=== PATIENT | female | born 1930 | race Caucasian/White ===

== ENCOUNTER 2018-09-07 10:43 | Day surgery (SDC) | payer MEDICARE ==
[2018-09-06 13:51] VITALS: BMI 27.4
[2018-09-07] MEDS ORDERED: PROPOFOL 200 MG/20 ML VIAL ONE (11:42)
[2018-09-07 11:55] LABS: #Lymphocytes 0.9 thou/uL (1.20-3.40); #Monocytes 0.6 thou/uL (0.11-0.59); #Neutrophils 8.3 thou/uL (1.40-6.50); %Basophils 0.4 % (0.0-1.0); %Eosinophils 0.4 % (0.0-10.0); %Monocytes 6.5 % (0.0-10.0); %Neutrophils 83.7 % (42.0-75.0); Mean Corpuscular HGB CONC 32.1 g/dL (32.0-36.0); Mean Corpuscular Hemoglobin 29.7 pg (27.0-31.0); Mean Corpuscular Volume 92.6 fL (78.0-98.0); Mean Platelet Volume 7.7 fL (7.4-10.4); Platelet Count 266 thou/uL (130-400); RBC Distribution Width 13.2 % (11.5-14.5); Red Blood Cell (RBC) Count 3.69 mill/uL (4.20-5.40); White Blood Cell (WBC) Count 9.9 thou/uL (4.8-10.8)
[2018-09-07 11:58] LABS: INR-International Normal Ratio 1.8; PTT 33.8 SEC (22.9-36.1); Prothrombin Time 20.8 SEC (12.0-14.7)
[2018-09-07 12:10] LABS: Anion Gap 13 mmol/L (10-20); BUN (Urea Nitrogen) 29 mg/dL (9.8-20.1); Calc. Creatinine Clearance 41 mL/min (70-130); Calcium 8.8 mg/dL (7.8-10.44); Carbon Dioxide 21 mmol/L (23-31); Chloride 97 mmol/L (98-107); Estimated GFR-MDRD 45; Glucose 100 mg/dL (83-110); Potassium 4.3 mmol/L (3.5-5.1); Sodium 127 mmol/L (136-145)
[2018-09-07] MEDS ORDERED: PROPOFOL 20 ML ONE (12:14)
--- NOTE | 2018-09-07 12:28 | EKG ---
Test Reason : PREOP Blood Pressure : / mmHG Vent. Rate : 079 BPM Atrial Rate : 076 BPM P-R Int : 000 ms QRS Dur : 174 ms QT Int : 480 ms P-R-T Axes : 000 -59 105 degrees QTc Int : 550 ms Electronic ventricular pacemaker When compared with ECG of 23-JUL-2015 11:16, Electronic ventricular pacemaker has replaced Wide QRS rhythm Vent. rate has increased BY [address] Sulma SANTA ([id number]) on 09/07/2018 12:28:11 PM Referred By: [facility] Confirmed By:DR. Sulma SANTA
[2018-09-07] MEDS ORDERED: Ketamine 50 MG/ML (10ML VIAL) ONE (13:43)
[2018-09-07] MEDS ORDERED: Hydrocortisone 1% Cream 30 GM TUBE ONE (14:17)
[2018-09-07] MEDS ORDERED: Hydrocortisone 1% Cream 30 GM TUBE TOP PRN (14:23)
--- NOTE | 2018-09-07 14:38 | OP ---
DATE OF PROCEDURE: 09/07/2018 PROCEDURE PERFORMED: Cardioversion report. REASON FOR PROCEDURE: Ms. Manley is here with persistent atrial fibrillation. She is anticoagulated with reduced dose of Xarelto without fail. Cardioversion is planned. DESCRIPTION OF PROCEDURE: The patient received propofol by Anesthesia specialist as well as ketamine. The ICD was interrogated pre and post procedure. After adequate level of sedation achieved, a synchronized 35-joule shock was delivered to the device, but appeared to convert the patient back to sinus rhythm. Following that, a 300-joule external synchronized shock converted her back to sinus rhythm. CONCLUSIONS: Successful cardioversion. PLAN: Continue monitoring for recurrent arrhythmias. Consider antiarrhythmic agents if symptomatic difference is noted. Continue anticoagulation. Job ID: [id number]
== END 2018-09-07 15:42 | disposition home or self-care (01) ==
LOC: CCL 10:43
PROVIDERS: ATTEND Internal Medicine Cardiovascular Disease
PROC: 5A2204Z Restoration of Cardiac Rhythm, Single (ICD-10-PCS; principal; 2018-09-07)
DX: I48.1 Persistent atrial fibrillation (principal); I11.0 Hypertensive heart disease with heart failure; I50.22 Chronic systolic (congestive) heart failure; I25.10 Atherosclerotic heart disease of native coronary artery without angina pectoris; M06.9 Rheumatoid arthritis, unspecified; E03.9 Hypothyroidism, unspecified; Z95.810 Presence of automatic (implantable) cardiac defibrillator; Z88.0 Allergy status to penicillin; Z88.5 Allergy status to narcotic agent; Z88.2 Allergy status to sulfonamides; Z88.8 Allergy status to other drugs, medicaments and biological substances; Z88.1 Allergy status to other antibiotic agents; Z79.02 Long term (current) use of antithrombotics/antiplatelets; Z79.01 Long term (current) use of anticoagulants; Z79.82 Long term (current) use of aspirin; Z79.899 Other long term (current) drug therapy
CPT/HCPCS: 80048; 85025; 85610; 85730; 92960; 93005; 93010; J2704

== ENCOUNTER 2018-12-24 20:15 | Inpatient (IN) | payer MEDICARE ==
--- NOTE | 2018-12-24 21:04 | CT ---
CT Brain WO Con HISTORY: Altered mental status COMPARISON: None. FINDINGS: There is generalized ventricular and sulcal prominence. There is some decreased attenuation to the periventricular white matter consistent with chronic white matter change. There are no signs of intracerebral hemorrhage or extra-axial fluid collections the mastoid air cells and visualiz ed sinuses are clear. IMPRESSION: No acute intracranial abnormalities.
[2018-12-24] MEDS ORDERED: Sodium Chloride 0.9% 1,000 ML IV SCH (22:43)
[2018-12-24] MEDS ORDERED: Ondansetron PF 4 MG/2 ML Vial IVP PRN (22:43)
[2018-12-24] MEDS ORDERED: Ondansetron ODT 4 MG TAB PO PRN (22:43)
[2018-12-24] MEDS ORDERED: hydrALAZINE 20 MG/ML VIAL SLOW IVP PRN (22:43)
[2018-12-24 22:59] VITALS: BMI 26.4
[2018-12-25 00:11] LABS: Troponin I 0.058 ng/mL (< 0.028)
--- NOTE | 2018-12-25 00:48 | HP ---
PRIMARY CARE PROVIDER: Tracy Barroso MD CHIEF COMPLAINT: Visual hallucinations and weakness. HISTORY OF PRESENT ILLNESS: This is an 88-year-old female, who presents to [facility] Emergency Department in transfer from [facility], where the patient initially presented for changes to mental status and confusion with some visual hallucinations. The patient states she has noted some visual hallucinations seeing people not in the room over the last several days. The patient denied recent head trauma, fever, chills, exposure history, or change to her chronic medication regimen. The patient states she normally ambulates with a rolling walker, but denied recent fall or injury. The patient receives assistance with activities of daily living and meal preparation from her daughter whom she lives with. The patient denied any diarrhea, nausea, vomiting, or dysuria. The patient states she sleeps generally well at night, but has noted the visual hallucinations in the last several days. The patient denied taking any new medication as stated previously, or known exposure history. In the emergency room, the patient underwent general evaluation including CT imaging of the brain showing no acute process. Metabolic screening showed mild acute kidney injury in the context of chronic kidney disease as well as chronic normocytic anemia. PAST MEDICAL HISTORY: 1. Chronic atrial fibrillation with chronic anticoagulation with Xarelto. 2. Rheumatoid arthritis. 3. Hypothyroidism. 4. Hypertension. 5. Systolic congestive heart failure with ejection fraction in the 30% range. 6. Coronary artery disease. 7. Bioprosthetic aortic valve replacement. PAST SURGICAL HISTORY: 1. Status post bioprosthetic aortic valve replacement. 2. Status post ICD placement with lead revision, 08/2018. 3. Status post cardiac stent placement. 4. Status post bilateral tubal ligation. 5. Status post hysterectomy. 6. Status post bowel resection. CURRENT MEDICATIONS: 1. Coreg 3.125 mg p.o. b.i.d.. 2. Lasix 40 mg p.o. Wednesday and Wednesday only. 3. Potassium chloride 20 mEq p.o. daily. 4. Xarelto 15 mg p.o. daily. 5. Folic acid 0.8 mg p.o. daily. 6. Vitamin D3 5000 units p.o. on Wednesday and Wednesday. 7. Plavix 75 mg p.o. daily. 8. Levothyroxine 75 mcg p.o. daily. ALLERGIES: CODEINE SULFATE, METHOTREXATE, PENICILLIN, SULFA. FAMILY HISTORY: Positive for hypertension. SOCIAL HISTORY: The patient resides in [place], [place], living with her daughter. Ambulatory with a rolling walker. No recent falls. No alcohol, tobacco, or illicit drug use. REVIEW OF SYSTEMS: CONSTITUTIONAL: Negative for weight loss or gain, ability to conduct usual activities. SKIN: Negative for rash, itching. EYES: Negative for double vision, pain. ENT/MOUTH: Negative for nose bleeding, neck stiffness, pain, tenderness. CARDIOVASCULAR: Negative for palpitations, dyspnea on exertion, orthopnea. RESPIRATORY: Negative for shortness of breath, wheezing, cough, hemoptysis, fever or night sweats. GASTROINTESTINAL: Negative for poor appetite, abdominal pain, heartburn, nausea, vomiting, constipation, or diarrhea. GENITOURINARY: Negative for urgency, frequency, dysuria, nocturia. MUSCULOSKELETAL: Negative for pain, swelling. NEUROLOGIC/PSYCHIATRIC: Negative for anxiety, depression. ALLERGY/IMMUNOLOGIC: Negative for skin rash, bleeding tendency. Otherwise negative except as stated per HPI. PHYSICAL EXAMINATION: VITAL SIGNS: On admission, blood pressure 125/74, pulse 79, respiratory rate 16, temperature 97.6 degrees Fahrenheit, O2 saturation 97% on room air. GENERAL APPEARANCE: This is an 88-year-old female, alert and oriented x3, pleasant, responsive, in no acute distress. HEENT: Pupils are equal, round, reactive to light and accommodation. Extraocular muscles are intact. No scleral icterus. No conjunctival injection. Nares are patent. OP is clear. Teeth in good repair. NECK: Supple. No cervical adenopathy. No thyromegaly. No carotid bruits. No JVD appreciated. Cervical spine with full active and passive range of motion. No meningeal signs noted. CHEST: Lungs are clear to auscultation bilaterally. CARDIOVASCULAR: S1 and S2 with irregular rate and rhythm with a 2/6 systolic ejection murmur loudest in the right upper sternal border. Left upper chest wall with AICD device. ABDOMEN: Obese, soft, nontender, and nondistended. Bowel sounds are positive in all 4 quadrants. There is no hepatosplenomegaly. No abdominal bruits. No rebound or guarding appreciated. EXTREMITIES: Warm and dry with fair turgor. No clubbing, cyanosis, or asymmetric edema appreciated. Pulses palpable distally at the dorsalis pedis, posterior tibial, and popliteal arteries bilaterally. Capillary refill less than 2 seconds. Multiple deformities of the hands and toes consistent with rheumatoid arthritis. NEUROLOGIC: Cranial nerves 2 through 12 are grossly intact. No focal or lateralizing signs appreciated. PERTINENT LABORATORY DATA AND X-RAY FINDINGS: Sodium 137, potassium 4.0, chloride 102, CO2 of 22, BUN 29, creatinine 1.56, estimated GFR of 31, glucose 98, calcium 9.0, magnesium 1.6. LFTs within normal limits. Troponin I 0.047. BNP 526, previously noted 1750, 09/26/2018. TSH 1.41. CBC showed a white blood cell count of 6.2, hemoglobin 9.5, hematocrit 31, platelet count 323 with normal differential. Urinalysis showed trace leukocyte esterase with 7 to 10 squamous epithelial cells. EKG dated 12/24/2018 by my interpretation shows AV dual pacing with heart rates in the 70s. CT of the brain without contrast dated 12/24/2018 showed no acute intracranial process. Portable chest x-ray dated 12/24/2018 showed no acute cardiopulmonary process. ASSESSMENT AND PLAN: 1. Altered mental status/visual hallucinations. The patient will be observed on the telemetry unit. Exact etiology unclear currently. Questionable metabolic process. We will continue to observe on the telemetry unit and monitor for recurrence. 2. Acute kidney injury on chronic kidney disease, stage 3. Continue intravenous normal saline at 50 mL/h. Avoid nephrotoxic agents and limit contrast exposure. Repeat creatinine in the a.m. 3. Dehydration. Suspect secondary to increased Lasix dosing. Continue low volume IV fluids as outlined previously and monitor clinical response. 4. Normocytic anemia. Chronic when reviewing the electronic medical record. Check stool guaiac x1. Repeat CBC in the a.m. 5. Chronic atrial fibrillation. Current AV pacing on telemetry and EKG monitoring. Stable. 6. Chronic anticoagulation with Xarelto. Resume Xarelto 15 mg daily. 7. Prophylaxis. SCDs while in bed. Pepcid 20 mg p.o. b.i.d. CODE STATUS: Full. Surrogate medical decision maker is the patient's daughter. Job ID: [id number]
[2018-12-25] MEDS: Acetaminophen 500 MG TAB PO PRN (01:30)
[2018-12-25 05:59] LABS: Band 2 % (5-11); Eosinophils 7 % (0-10); Hemoglobin 9.4 g/dL (12.0-16.0); Hypochromia SLIGHT = 6-15 cells (100X) (0-5/hpf); Lymphocytes 18 % (21-51); MDiff Complete? YES; Mean Corpuscular HGB CONC 33.3 g/dL (32.0-36.0); Mean Corpuscular Hemoglobin 31.5 pg (27.0-31.0); Mean Corpuscular Volume 94.7 fL (78.0-98.0); Monocytes 3 % (0-10); Neutrophil 70 % (42-75); Platelet Count 359 thou/uL (130-400); Platelet Morphology Comment Appears Adequate; RBC Distribution Width 14.2 % (11.5-14.5); Red Blood Cell (RBC) Count 2.97 mill/uL (4.20-5.40); White Blood Cell (WBC) Count 4.7 thou/uL (4.8-10.8)
[2018-12-25 06:11] LABS: Anion Gap 14 mmol/L (10-20); BUN (Urea Nitrogen) 26 mg/dL (9.8-20.1); Calc. Creatinine Clearance 32 mL/min (70-130); Calcium 8.7 mg/dL (7.8-10.44); Carbon Dioxide 23 mmol/L (23-31); Chloride 104 mmol/L (98-107); Estimated GFR-MDRD 38; Glucose 82 mg/dL (83-110); Potassium 3.6 mmol/L (3.5-5.1); Sodium 137 mmol/L (136-145)
[2018-12-25] MEDS: Famotidine 20 MG TAB PO SCH (08:14)
[2018-12-25 12:12] LABS: Bacteria/HPF 1+ HPF (None Seen); Bilirubin Negative (Negative); Blood, Urine Negative (Negative); Clarity Clear (Clear); Glucose, Urine (Dipstick) Normal (Negative); Leukocyte Negative Leu/uL (Negative); Nitrite Negative (Negative); Protein, Urine (Dipstick) Negative (Neg-Trace); RBC/HPF 0-3 HPF (0-3); Squamous Epithelial 0-3 HPF (0-3); Urobilinogen Normal mg/dL (Less than 2); WBC/HPF 0-3 HPF (0-3)
[2018-12-25 12:13] LABS: Urine Culture Reflex Yes Yes
[2018-12-25] MEDS ORDERED: ALPRAZolam 0.25 MG TAB PO PRN (15:39)
[2018-12-25] MEDS ORDERED: Loratadine 10 MG TAB PO PRN (16:00)
--- NOTE | 2018-12-25 16:18 | PRG ---
DATE OF SERVICE: 12/25/2018 SUBJECTIVE: The patient is seen at bedside, admitted with hallucinations, and initial workup in the emergency room showed the patient was dehydrated, has increased BUN-creatinine ratio. The patient's creatinine is improving. We will discontinue IV fluids. Continue to monitor clinically as the patient's hallucinations are getting better, but still having. OBJECTIVE: VITAL SIGNS: Blood pressure 114/53, temperature 98.2, pulse 65, respirations 17, oxygen saturation 100%. GENERAL: The patient is sitting in bed comfortably, not in any distress. HEENT: Conjunctivae normal. Oral mucosa moist. NECK: Supple. No JVD. No lymphadenopathy in neck. CHEST: Normal vesicular breathing. No rhonchi. No wheezing. HEART: Sounds normal. ABDOMEN: Soft and benign. No tenderness or visceromegaly. EXTREMITIES: Negative edema of feet. No rash. No cyanosis. LABORATORY DATA: BMP unremarkable, except creatinine 1.34. Troponin 0.047 and 0.058. CBC unremarkable, except hemoglobin 9.4, white blood cells 4.7. UA unremarkable. Chest x-ray pending. CT brain negative for acute findings. IMPRESSION: 1. Hallucinations, most likely related to acute dehydration. The patient's hallucinations are getting better. The patient has been recently increased her Lasix, which she was taking at home. We will continue to monitor clinically. The patient's hallucinations are improving, however, still present. We will continue to monitor mental status. CT brain negative for acute findings. Negative UA. White blood cells are normal. We will get a chest x-ray to rule out any new infiltrates. However, clinically, the patient denies any symptoms. 2. Acute kidney injury with baseline chronic kidney disease. Creatinine improving. We will check BMP in the morning. 3. Chronic anemia. The patient denies any active bleeding. We will continue to monitor hemoglobin and hematocrit. 4. Chronic atrial fibrillation with a pacemaker rhythm. 5. Chronic congestive heart failure, systolic in character. The patient is using diuretics at home. We have recommended the patient to decrease the dose of diuretics and recommended to follow up outpatient with Cardiology for fluid status monitoring. 6. Deep venous thrombosis and gastrointestinal prophylaxis. PLAN: Possibly, the patient will be discharged home if her symptoms and hallucinations are better. Job ID: [id number]
[2018-12-25] MEDS: Carvedilol 3.125 MG TAB PO SCH (16:47)
[2018-12-25 17:13] LABS: Hemoglobin 10.9 g/dL (12.0-16.0); Platelet Count 380 thou/uL (130-400)
[2018-12-25] MEDS: Lisinopril 2.5 MG TAB PO SCH (19:30)
[2018-12-25] MEDS: Atorvastatin Calcium 20 MG TAB PO SCH (19:30)
[2018-12-25] MEDS: Hydroxychloroquine Sulfate 200 MG TAB PO SCH (19:31)
[2018-12-25] MEDS ORDERED: FLU VACC TS2019-20(65YR UP)/PF 180 MCG/0.5 ML SYRINGE IM ONE (21:00)
[2018-12-26] MEDS: Acetaminophen 500 MG TAB PO PRN ×2 (03:26→21:21)
[2018-12-26] MEDS: Levothyroxine Sodium 25 MCG TAB PO SCH (03:26)
[2018-12-26 05:04] LABS: #Eosinphils 0.3 thou/uL (0.0-0.7); #Lymphocytes 1.6 thou/uL (1.20-3.40); #Monocytes 0.4 thou/uL (0.11-0.59); #Neutrophils 3.4 thou/uL (1.40-6.50); %Basophils 0.7 % (0.0-1.0); %Eosinophils 4.8 % (0.0-10.0); %Lymphocytes 27.3 % (21.0-51.0); %Monocytes 7.7 % (0.0-10.0); %Neutrophils 59.5 % (42.0-75.0); Hemoglobin 9.4 g/dL (12.0-16.0); Mean Corpuscular Hemoglobin 31.2 pg (27.0-31.0); Mean Corpuscular Volume 94.5 fL (78.0-98.0); Mean Platelet Volume 7.3 fL (7.4-10.4); Platelet Count 367 thou/uL (130-400); RBC Distribution Width 14.3 % (11.5-14.5); Red Blood Cell (RBC) Count 3.02 mill/uL (4.20-5.40); White Blood Cell (WBC) Count 5.7 thou/uL (4.8-10.8)
[2018-12-26 05:16] LABS: Anion Gap 12 mmol/L (10-20); BUN (Urea Nitrogen) 23 mg/dL (9.8-20.1); Calc. Creatinine Clearance 36 mL/min (70-130); Carbon Dioxide 23 mmol/L (23-31); Chloride 104 mmol/L (98-107); Estimated GFR-MDRD 43; Glucose 85 mg/dL (83-110); Potassium 3.5 mmol/L (3.5-5.1); Sodium 135 mmol/L (136-145)
[2018-12-26] MEDS: Aspirin 325 MG TAB PO SCH (08:02)
[2018-12-26] MEDS: Amiodarone 200 MG TAB PO SCH (08:02)
[2018-12-26] MEDS: Leflunomide 10 mg Tablet PO SCH (08:02)
[2018-12-26] MEDS: Potassium Chloride 20 MEQ TAB PO SCH (08:02)
[2018-12-26] MEDS: predniSONE 5 MG TAB PO SCH (08:02)
[2018-12-26] MEDS: Carvedilol 3.125 MG TAB PO SCH ×2 (08:03→17:09)
[2018-12-26] MEDS: Hydroxychloroquine Sulfate 200 MG TAB PO SCH ×2 (08:03→19:50)
[2018-12-26] MEDS: Lisinopril 2.5 MG TAB PO SCH ×2 (08:03→19:50)
[2018-12-26] MEDS: Clopidogrel Bisulfate 75 MG TAB PO SCH (08:03)
[2018-12-26] MEDS: Famotidine 20 MG TAB PO SCH (08:03)
[2018-12-26] MEDS: Rivaroxaban 15 MG TAB PO SCH (08:03)
[2018-12-26] MEDS: Vit A,C & E/Lutein/Minerals Tablet PO SCH (08:03)
[2018-12-26] MEDS: Folic Acid 1 MG TAB PO SCH (08:03)
--- NOTE | 2018-12-26 19:14 | PDOC.HOSPP ---
- Subjective Encounter Date: 12/26/18 Encounter Time: 10:00 Subjective: pt up in bed today she did have visual hallucination - Objective Vital Signs & Weight: Vital Signs (12 hours) Temp Pulse Resp BP Pulse Ox 12/26/18 15:35 97.4 F L 83 14 125/60 100 12/26/18 11:14 97.6 F 76 20 122/57 L 98 12/26/18 08:49 98.2 F 75 16 94/50 L 97 Weight Weight 148 lb 14.4 oz I&O: 12/25/18 12/26/18 12/27/18 06:59 06:59 06:59 Intake Total 1560 1050 Output Total 300 450 Balance 1260 600 Result Diagrams: 12/26/18 04:14 12/26/18 04:14 Hospitalist ROS - Review of Systems Cardiovascular: denies: chest pain, palpitations, orthopnea, paroxysmal noc. dyspnea, edema, light headedness, other Gastrointestinal: denies: nausea, vomiting, abdominal pain, diarrhea, constipation, melena, hematochezia, other Genitourinary: denies: dysuria, frequency, incontinence, hematuria, retention, other Musculoskeletal: denies: neck pain, shoulder pain, arm pain, back pain, hand pain, leg pain, foot pain, other - Medication Medications: Active Medications Generic Name Dose Route Start Last Admin Trade Name Freq PRN Reason Stop Dose Admin Acetaminophen 1,000 mg 12/24/18 22:43 12/26/18 03:26 Tylenol PO 1,000 mg Q6H PRN Administration Mild Pain (1-3) Amiodarone HCl 200 mg 12/26/18 09:00 12/26/18 08:02 Cordarone PO 200 mg QAM ALEX Administration Aspirin 325 mg 12/26/18 09:00 12/26/18 08:02 Aspirin PO 325 mg DAILY ALEX Administration Atorvastatin Calcium 20 mg 12/25/18 21:00 12/25/18 19:30 Lipitor PO 20 mg HS ALEX Administration Carvedilol 3.125 mg 12/25/18 17:00 12/26/18 17:09 Coreg PO 3.125 mg BID-WM ALEX Administration Cholecalciferol 5,000 units 12/26/18 09:00 12/26/18 08:03 Vitamin D3 PO 5,000 units DAILY ALEX Administration Clopidogrel Bisulfate 75 mg 12/26/18 09:00 12/26/18 08:03 Plavix PO 75 mg DAILY ALEX Administration Famotidine 20 mg 12/25/18 09:00 12/26/18 08:03 Pepcid PO 20 mg DAILY ALEX Administration Folic Acid 1 mg 12/26/18 09:00 12/26/18 08:03 Folvite PO 1 mg DAILY ALEX Administration Hydroxychloroquine Sulfate 200 mg 12/25/18 21:00 12/26/18 08:03 Plaquenil PO 200 mg BID ALEX Administration Leflunomide 10 mg 12/26/18 09:00 12/26/18 08:02 Arava PO 10 mg DAILY ALEX Administration Levothyroxine Sodium 25 mcg 12/26/18 06:00 12/26/18 03:26 Synthroid PO 25 mcg 0600 ALEX Administration Lisinopril 2.5 mg 12/25/18 21:00 12/26/18 08:03 Zestril PO 2.5 mg BID ALEX Administration Multivitamins/Minerals 1 tab 12/26/18 09:00 12/26/18 08:03 Ocuvite With Lutein PO 1 tab DAILY ALEX Administration Potassium Chloride 20 meq 12/26/18 08:00 12/26/18 08:02 K-Dur PO 20 meq QAM-WM ALEX Administration Prednisone 5 mg 12/26/18 08:00 12/26/18 08:02 Prednisone PO 5 mg QAM-WM ALEX Administration Rivaroxaban 15 mg 12/26/18 09:00 12/26/18 08:03 Xarelto PO 15 mg DAILY ALEX Administration Sodium Chloride 10 ml 12/25/18 21:00 12/26/18 08:09 Flush - Normal Saline IVF 10 ml Q12HR ALEX Administration - Exam Heart: negative: RRR, no murmur, no gallops, no rubs, normal peripheral pulses, irregular, diminshed peripheral pulses, murmur present, II/IV, III/IV Respiratory: negative: CTAB, no wheezes, no rales, no ronchi, normal chest expansion, no tachypnea, normal percussion, rales, rhonchi, tachypneic, wheezes Gastrointestinal: negative: soft, non-tender, non-distended, normal bowel sounds , no palpable masses, no hepatomegaly, no splenomegaly, no bruit, no guarding, no rigidity, tender to palpation, distended, diminished bowl sounds, voluntary guarding Extremities: negative: no cyanosis, no clubbing, no edema, 1+ LE edema, 2+ LE edema, clubbing Hosp A/P (1) Visual hallucination Code(s): R44.1 - VISUAL HALLUCINATIONS Status: Acute (2) Dehydration Code(s): E86.0 - DEHYDRATION Status: Acute (3) CAD (coronary artery disease) Code(s): I25.10 - ATHSCL HEART DISEASE OF [place] CORONARY ARTERY W/O ANG PCTRS Status: Acute (4) HTN (hypertension) Code(s): I10 - ESSENTIAL (PRIMARY) HYPERTENSION Status: Chronic - Plan pt has been eating and drinking well, her creatinine has improved. unable to get MRI due to her AICD not compatible. I will monitor her and if no symptoms she will be discharged home. will hold off on her lasix for now.
[2018-12-26] MEDS: Atorvastatin Calcium 20 MG TAB PO SCH (19:50)
[2018-12-27] MEDS: Levothyroxine Sodium 25 MCG TAB PO SCH (05:30)
[2018-12-27] MEDS: Amiodarone 200 MG TAB PO SCH (09:43)
[2018-12-27] MEDS: Aspirin 325 MG TAB PO SCH (09:43)
[2018-12-27] MEDS: Potassium Chloride 20 MEQ TAB PO SCH (09:43)
[2018-12-27] MEDS: Carvedilol 3.125 MG TAB PO SCH ×2 (09:43→16:59)
[2018-12-27] MEDS: predniSONE 5 MG TAB PO SCH (09:43)
[2018-12-27] MEDS: Famotidine 20 MG TAB PO SCH (09:44)
[2018-12-27] MEDS: Clopidogrel Bisulfate 75 MG TAB PO SCH (09:44)
[2018-12-27] MEDS: Hydroxychloroquine Sulfate 200 MG TAB PO SCH (09:44)
[2018-12-27] MEDS: Folic Acid 1 MG TAB PO SCH (09:44)
[2018-12-27] MEDS: Vit A,C & E/Lutein/Minerals Tablet PO SCH (09:45)
[2018-12-27] MEDS: Lisinopril 2.5 MG TAB PO SCH (09:45)
[2018-12-27] MEDS: Rivaroxaban 15 MG TAB PO SCH (09:45)
[2018-12-27 10:35] LABS: #Eosinphils 0.2 thou/uL (0.0-0.7); #Lymphocytes 1.9 thou/uL (1.20-3.40); #Monocytes 0.6 thou/uL (0.11-0.59); #Neutrophils 4.7 thou/uL (1.40-6.50); %Basophils 0.4 % (0.0-1.0); %Eosinophils 2.5 % (0.0-10.0); %Lymphocytes 25.5 % (21.0-51.0); %Neutrophils 63.7 % (42.0-75.0); Hemoglobin 10.9 g/dL (12.0-16.0); Mean Corpuscular HGB CONC 32.8 g/dL (32.0-36.0); Mean Corpuscular Hemoglobin 31.2 pg (27.0-31.0); Mean Corpuscular Volume 95.1 fL (78.0-98.0); Platelet Count 327 thou/uL (130-400); RBC Distribution Width 14.1 % (11.5-14.5); Red Blood Cell (RBC) Count 3.48 mill/uL (4.20-5.40); White Blood Cell (WBC) Count 7.4 thou/uL (4.8-10.8)
[2018-12-27] MEDS: Leflunomide 10 mg Tablet PO SCH (10:35)
[2018-12-27 10:54] LABS: Anion Gap 20 mmol/L (10-20); BUN (Urea Nitrogen) 24 mg/dL (9.8-20.1); Calc. Creatinine Clearance 32 mL/min (70-130); Calcium 9.4 mg/dL (7.8-10.44); Carbon Dioxide 18 mmol/L (23-31); Chloride 100 mmol/L (98-107); Estimated GFR-MDRD 37; Glucose 105 mg/dL (83-110); Sodium 134 mmol/L (136-145)
[2018-12-27] MEDS: Acetaminophen 500 MG TAB PO PRN (14:57)
--- NOTE | 2018-12-27 15:53 | PDOC.HOSPP ---
- Subjective Encounter Date: 12/27/18 Encounter Time: 10:30 Subjective: pt up in bed still having visual hallucinations. - Objective Vital Signs & Weight: Vital Signs (12 hours) Temp Pulse Resp BP Pulse Ox 12/27/18 09:45 102 H 12/27/18 08:00 98.4 F 102 H 20 111/67 100 12/27/18 03:58 97.6 F 84 16 120/62 98 Weight Weight 148 lb 14.4 oz I&O: 12/26/18 12/27/18 12/28/18 06:59 06:59 06:59 Intake Total 1560 1290 Output Total 300 950 Balance 1260 340 Result Diagrams: 12/27/18 10:27 12/27/18 10:27 Hospitalist ROS - Review of Systems Cardiovascular: denies: chest pain, palpitations, orthopnea, paroxysmal noc. dyspnea, edema, light headedness, other Gastrointestinal: denies: nausea, vomiting, abdominal pain, diarrhea, constipation, melena, hematochezia, other Genitourinary: denies: dysuria, frequency, incontinence, hematuria, retention, other - Medication Medications: Active Medications Generic Name Dose Route Start Last Admin Trade Name Freq PRN Reason Stop Dose Admin Acetaminophen 1,000 mg 12/24/18 22:43 12/27/18 14:57 Tylenol PO 1,000 mg Q6H PRN Administration Mild Pain (1-3) Atorvastatin Calcium 20 mg 12/25/18 21:00 12/26/18 19:50 Lipitor PO 20 mg HS ALEX Administration Carvedilol 3.125 mg 12/25/18 17:00 12/27/18 09:43 Coreg PO 3.125 mg BID-WM ALEX Administration Cholecalciferol 5,000 units 12/26/18 09:00 12/27/18 09:43 Vitamin D3 PO 5,000 units DAILY ALEX Administration Clopidogrel Bisulfate 75 mg 12/26/18 09:00 12/27/18 09:44 Plavix PO 75 mg DAILY ALEX Administration Folic Acid 1 mg 12/26/18 09:00 12/27/18 09:44 Folvite PO 1 mg DAILY ALEX Administration Levothyroxine Sodium 25 mcg 12/26/18 06:00 12/27/18 05:30 Synthroid PO 25 mcg 0600 ALEX Administration Multivitamins/Minerals 1 tab 12/26/18 09:00 12/27/18 09:45 Ocuvite With Lutein PO 1 tab DAILY ALEX Administration Potassium Chloride 20 meq 12/26/18 08:00 12/27/18 09:43 K-Dur PO 20 meq QAM-WM ALEX Administration Rivaroxaban 15 mg 12/26/18 09:00 12/27/18 09:45 Xarelto PO 15 mg DAILY ALEX Administration Sodium Chloride 10 ml 12/25/18 21:00 12/27/18 09:45 Flush - Normal Saline IVF 10 ml Q12HR ALEX Administration - Exam Neck: negative: supple, symmetric, no JVD, no thyromegaly, no lymphadenopathy, no carotid bruit, JVD Heart: negative: RRR, no murmur, no gallops, no rubs, normal peripheral pulses, irregular, diminshed peripheral pulses, murmur present, II/IV, III/IV Respiratory: negative: CTAB, no wheezes, no rales, no ronchi, normal chest expansion, no tachypnea, normal percussion, rales, rhonchi, tachypneic, wheezes Hosp A/P (1) Visual hallucination Code(s): R44.1 - VISUAL HALLUCINATIONS Status: Acute (2) Dehydration Code(s): E86.0 - DEHYDRATION Status: Acute (3) CAD (coronary artery disease) Code(s): I25.10 - ATHSCL HEART DISEASE OF [place] CORONARY ARTERY W/O ANG PCTRS Status: Acute (4) HTN (hypertension) Code(s): I10 - ESSENTIAL (PRIMARY) HYPERTENSION Status: Chronic - Plan pt has been eating and drinking well, her creatinine has improved. unable to get MRI due to her AICD not compatible. I will monitor her and if no symptoms she will be discharged home. will hold off on her lasix for now.
[2018-12-27] MEDS ORDERED: FLU VACC QS2019-20(6MOS UP)/PF 60 MCG/0.5 ML SYRINGE IM ONE (18:42)
[2018-12-27] MEDS: Atorvastatin Calcium 20 MG TAB PO SCH (20:27)
[2018-12-28] MEDS: Levothyroxine Sodium 25 MCG TAB PO SCH (05:52)
[2018-12-28 06:34] LABS: Anion Gap 15 mmol/L (10-20); BUN (Urea Nitrogen) 26 mg/dL (9.8-20.1); Calc. Creatinine Clearance 31 mL/min (70-130); Calcium 9.3 mg/dL (7.8-10.44); Carbon Dioxide 21 mmol/L (23-31); Chloride 103 mmol/L (98-107); Estimated GFR-MDRD 36; Glucose 86 mg/dL (83-110); Sodium 135 mmol/L (136-145)
[2018-12-28] MEDS: Carvedilol 3.125 MG TAB PO SCH (08:43)
[2018-12-28] MEDS: Potassium Chloride 20 MEQ TAB PO SCH (08:43)
[2018-12-28] MEDS: Clopidogrel Bisulfate 75 MG TAB PO SCH (08:44)
[2018-12-28] MEDS: Folic Acid 1 MG TAB PO SCH (08:44)
[2018-12-28] MEDS: Rivaroxaban 15 MG TAB PO SCH (08:44)
[2018-12-28] MEDS: Vit A,C & E/Lutein/Minerals Tablet PO SCH (08:45)
[2018-12-28] MEDS ORDERED: Sodium Chloride 0.9% 1,000 ML IV SCH (09:30)
[2018-12-28 10:50] LABS: Hemoglobin 9.5 g/dL (12.0-16.0); Platelet Count 357 thou/uL (130-400)
--- NOTE | 2018-12-28 13:11 | CON ---
DATE OF CONSULTATION: REASON FOR CONSULTATION: Elevated creatinine. HISTORY OF PRESENT ILLNESS: This is a very pleasant 88-year-old female, followed by Dr. Mckeon, presented to the hospital for altered mental status. Her baseline creatinine was less than 1.1, in September 2018 increased to 1.5, and is 1.37 today. The patient denies headache, numbness, tingling, or weakness. Denies any nausea, vomiting, or chest pain. The patient is on no nephrotoxic medication and no hypertension has been reported. PAST MEDICAL HISTORY: Significant for chronic atrial fibrillation, rheumatoid arthritis, hypothyroidism, hypertension, congestive heart failure, coronary artery disease, aortic valve replacement, ICD, tubal ligation, hysterectomy, bowel resection. MEDICATIONS: Home medications list reviewed. Hospital medications list reviewed. REVIEW OF SYSTEMS: 15-point review of system was performed and was negative except for positives noted above. GENERAL: HEAD: NECK: No swelling or lumps. NOSE: No epistaxis or discharge. EYES: No diplopia or pain. 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 NEUROPSYCHIATIC SYSTEMS: No suicidal ideation. No ideation. SKIN: Denies any rash or ulcer. CONSTITUTIONAL: No fever or chills. FAMILY HISTORY: Negative for ESRD. PHYSICAL EXAMINATION: CONSTITUTIONAL: The patient is awake and alert. VITAL SIGNS: Pulse 78, breathing 16, blood pressure 118/65. GENERAL APPEARANCE AND MENTAL STATUS: Fair. HEAD/NECK: Normocephalic. Atraumatic. EYES: EOMI. No deformity. EARS: Clear. No ulcers. NOSE: Intact. No lesions. MOUTH: Clear. No discharge. THROAT: Clear. No exudate. LUNGS: Clear. No crackles. CARDIAC: S1, S2. No rub. ABDOMEN: Benign. Bowel sounds positive. GENITALIA/RECTUM: Lin absent. BACK/EXTREMITIES: Edema 0+. NEUROLOGICAL: Alert and motor intact. SKIN: LYMPHATICS: LABORATORY DATA: Creatinine 1.37. ASSESSMENT AND RECOMMENDATION: 1. Acute kidney injury with chronic kidney disease, most likely due to decreased effective arterial blood volume and cardiorenal syndrome. No indication for dialysis. 2. Hypertension, stable. 3. Anemia, stable. 4. Congestive heart failure. Continue diuretics. I will hold off IV fluids. Job ID: [id number]
--- NOTE | 2018-12-28 15:02 | ULT ---
BILATERAL RENAL ULTRASOUND: HISTORY: Acute kidney insufficiency. COMPARISON: None. FINDINGS: Right kidney: Limited evaluation. There does appear to be increased echogenicity of the renal cortex. Grossly no hydronephrosis. There is right renal cortical thinning. Right kidney measurements: 9.1 x 4.7 x 4.7 cm. Left kidney: Limited evaluation. There does appear to be increased echogenicity of the renal cortex. Grossly no hydronephrosis. There is left renal cortical thinning. Left kidney measurements 8.9 x 5.5 x 5.1 cm. Urinary bladder: Normal mucosa. IMPRESSION: 1. No hydronephrosis. 2. Increased renal cortical echotexture. Correlate clinically for medical renal disease. Transcribed Date/Time: 12/28/2018 3:06 PM
[2018-12-28 15:34] VITALS: TEMP 97.6
[2018-12-28 16:57] VITALS: BP 106/61
--- NOTE | 2018-12-29 07:06 | PQF ---
NEYMAR GARCIA RADHA HUTTON [id number] [facility] [id number] CLINICAL DOCUMENTATION CLARIFICATION FORM: POST DISCHARGE Addendum to original discharge summary date: ____ Late entry note date: __ DATE: 12/29/18 ATTN: Radha Hutton Please exercise your independent, professional judgment in responding to the clarification form. Clinical indicators are provided on the bottom of this form for your review Please check appropriate box(s): [ ] Encephalopathy due to adverse effect of Lasix [ ] Encephalopathy due to toxic effect of Lasix [x ] Acute Metabolic Encephalopathy [ ] Transient Alteration of Awareness [ ] Other diagnosis [ ] Unable to determine In addition, please specify: Present on Admission (POA): [ x ] Yes [ ] No [ ] Unable to determine For continuity of documentation, please document condition throughout progress notes and discharge summary. Thank You. CLINICAL INDICATORS - SIGNS / SYMPTOMS / LABS H&P p1 11/ Dr Eid presneted for changes to mental status and confution with some visual hallucination H&P p3 11/ Dr Eid BUN 29, creatinine 1.56, GFR 31 H&P p3 11/ Dr Eid AMS questionable metabolic proces H&P p4 / Dr Eid Dehdyration suspected secondary to increased lasix dosing PN p1 12/25 Hallucination most likely related to acute dehdyration RISK FACTORS H&P p2 11/2 88 year-old female H&P p3 11/2 - Acute kidney injury on chronic kidney disease stage 3 TREATMENTS: H&P p3 11/2 - Observe on telemetry unti MAY 02 Normal saline at 50ml/hr PN p1 12/25 Monitor mental status (This form is maintained as a part of the permanent medical record) 2014 [employer]. All Rights Reserved Lizz [not provided] MTDD
--- NOTE | 2018-12-29 10:59 | DIS ---
DATE OF ADMISSION: 12/26/2018 DATE OF DISCHARGE: 12/28/2018 DISCHARGE DIAGNOSES: 1. Visual hallucinations. 2. Acute on chronic kidney disease. 3. Dehydration. HOSPITAL COURSE: The patient is an 88-year-old female who initially presented to the hospital on 12/24, with complaints of visual hallucinations that has been going on for 2 weeks, some dehydration, and some weakness. The patient at this time stated that she had not been eating or drinking very much and has been taking significant amount of diuretics. The patient at this time was taken off the diuretics and also she was put on some gentle hydration. Her creatinine initially improved. Her CT head that was done did not show any acute abnormalities except for just some chronic white matter changes. We unable to do the MRI due to she had AICD. The patient's creatinine initially improved. However, upon rechecking, her creatinine continued to worsen. At this time, a renal ultrasound was done, which indicated no hydronephrosis and indicated increased renal cortical echotexture. She also was seen by Nephrology and no further workup and was okay per Nephrology to be discharged home. The patient currently has no visual hallucinations. I did complete a thorough medication reconciliation and the thoughts were that possible the family has had some medication mixed up at home that they were giving her which could be causing some of her symptoms. She was not on any recent antibiotics. No recent changes except for the Xarelto, which is new, which was started a month ago. I did look up the side effects of Xarelto, it did not indicate any visual hallucinations. On the day of discharge, the patient had no visual hallucinations at all. I have recommended the patient and the patient's family to follow up with the primary to get blood work done next week. This was written in discharge instructions. Her creatinine was 1.37 on discharge. The patient currently denies any abdominal pain, nausea, vomiting, or diarrhea. Her urine also was normal. MEDICATIONS: Her home medications will be: 1. Xarelto 15 mg daily. 2. Levothyroxine 25 mcg daily. 3. Coreg 3.125 daily. 4. Atorvastatin 20 mg daily. 5. Folic acid one daily. 6. Vitamin D3. 7. Zyrtec as needed. 8. Multivitamin. PHYSICAL EXAMINATION: VITAL SIGNS: Temperature 97.6, pulse 72, respirations 16, 99% on room air, blood pressure of 118/65. GENERAL: She is awake, alert, and oriented x3. Does not appear in distress. HEENT: Normocephalic, atraumatic. No lymphadenopathy noted. Pupils equal and reactive to light. CV: S1 and S2 present. No murmurs, rubs, or gallops. ABDOMEN: Soft and nontender. Bowel sounds are present x2. Again, she will be discharged home. She will follow up with her primary and also she is going to follow up next week to get her blood work done. Job ID: [id number]
== END 2018-12-28 17:25 | disposition home or self-care (01) | DRG 682 ==
LOC: ERS 20:15 → 2SW 22:49 → OBSVTOIN 12-26 13:57
PROVIDERS: ADMIT Internal Medicine; ATTEND Internal Medicine
DX: N17.9 Acute kidney failure, unspecified (principal); G93.41 Metabolic encephalopathy; I48.20 Chronic atrial fibrillation, unspecified; I13.0 Hypertensive heart and chronic kidney disease with heart failure and stage 1 through stage 4 chronic kidney disease, or unspecified chronic kidney disease; I50.22 Chronic systolic (congestive) heart failure; M06.9 Rheumatoid arthritis, unspecified; E03.9 Hypothyroidism, unspecified; I25.10 Atherosclerotic heart disease of native coronary artery without angina pectoris; E86.0 Dehydration; N18.3 Chronic kidney disease, stage 3 (moderate); D63.1 Anemia in chronic kidney disease; Z79.01 Long term (current) use of anticoagulants; Z95.2 Presence of prosthetic heart valve; Z95.5 Presence of coronary angioplasty implant and graft; Z95.810 Presence of automatic (implantable) cardiac defibrillator; Z79.899 Other long term (current) drug therapy; Z79.890 Hormone replacement therapy; Z88.5 Allergy status to narcotic agent; Z88.0 Allergy status to penicillin; Z88.2 Allergy status to sulfonamides; Z88.8 Allergy status to other drugs, medicaments and biological substances; Z79.02 Long term (current) use of antithrombotics/antiplatelets; Z23 Encounter for immunization
CPT/HCPCS: 36415; 70450; 76770; 80048; 81001; 82533; 82565; 85007; 85014; 85018; 85025; 85027; 85049; 87086; 90471; 90686; G0008; J7512

== ENCOUNTER 2019-01-02 11:11 | Emergency (ER) | payer MEDICARE ==
[2019-01-02] MEDS ORDERED: Ondansetron PF 4 MG/2 ML Vial ONE (13:18)
[2019-01-02 13:27] LABS: #Eosinphils 0.3 thou/uL (0.0-0.7); #Lymphocytes 1.5 thou/uL (1.20-3.40); #Monocytes 0.4 thou/uL (0.11-0.59); #Neutrophils 4.9 thou/uL (1.40-6.50); %Basophils 0.2 % (0.0-1.0); %Eosinophils 4.5 % (0.0-10.0); %Lymphocytes 21.3 % (21.0-51.0); %Monocytes 5.9 % (0.0-10.0); %Neutrophils 68.1 % (42.0-75.0); Hemoglobin 10.3 g/dL (12.0-16.0); Mean Corpuscular HGB CONC 32.6 g/dL (32.0-36.0); Mean Corpuscular Hemoglobin 30.8 pg (27.0-31.0); Mean Corpuscular Volume 94.7 fL (78.0-98.0); Platelet Count 419 thou/uL (130-400); RBC Distribution Width 14.4 % (11.5-14.5); Red Blood Cell (RBC) Count 3.34 mill/uL (4.20-5.40); White Blood Cell (WBC) Count 7.2 thou/uL (4.8-10.8)
[2019-01-02 13:51] LABS: ALT (SGPT) 7 U/L (8-55); AST (SGOT) 18 U/L (5-34); Alkaline Phosphatase 102 U/L (40-110); Anion Gap 15 mmol/L (10-20); BUN (Urea Nitrogen) 17 mg/dL (9.8-20.1); Bilirubin, Total 0.5 mg/dL (0.2-1.2); Calc. Creatinine Clearance 0 mL/min (70-130); Carbon Dioxide 21 mmol/L (23-31); Chloride 102 mmol/L (98-107); Estimated GFR-MDRD 50; Globulin 3.4 g/dL (2.4-3.5); Glucose 79 mg/dL (83-110); Lipase 40 U/L (8-78); Potassium 3.8 mmol/L (3.5-5.1); Protein, Total 6.4 g/dL (6.0-8.3); Sodium 134 mmol/L (136-145)
[2019-01-02 14:21] LABS: Bacteria/HPF 4+ HPF (None Seen); Bilirubin Negative (Negative); Blood, Urine Negative (Negative); Clarity Extra Turbid (Clear); Glucose, Urine (Dipstick) Normal (Negative); Leukocyte 500 Leu/uL (Negative); Nitrite 1+ (Negative); Protein, Urine (Dipstick) 50 mg/dL (Neg-Trace); Squamous Epithelial 0-3 HPF (0-3); Urobilinogen Normal mg/dL (Less than 2); WBC/HPF Greater than 50 HPF (0-3)
== END 2019-01-02 15:49 | disposition home or self-care (01) ==
LOC: ERS 11:11
DX: N39.0 Urinary tract infection, site not specified (principal); R11.2 Nausea with vomiting, unspecified; E03.9 Hypothyroidism, unspecified; I10 Essential (primary) hypertension; Z79.899 Other long term (current) drug therapy; Z79.01 Long term (current) use of anticoagulants
CPT/HCPCS: 51701; 80053; 81003; 81015; 83690; 84484; 85025; 87077; 87086; 87186; 93005; 96374; A4353; J2405

== ENCOUNTER 2019-01-14 22:50 | Inpatient (IN) | payer MEDICARE ==
[2019-01-15] MEDS ORDERED: methylPREDNISolone Sod Succ/PF 125 MG/2 ML VIAL ONE (00:54)
[2019-01-15 01:06] LABS: Troponin I 0.035 ng/mL (< 0.028)
[2019-01-15 04:21] LABS: Troponin I 0.033 ng/mL (< 0.028)
[2019-01-15] MEDS ORDERED: Acetaminophen 325 MG TAB PO PRN (04:52)
[2019-01-15] MEDS ORDERED: Ondansetron PF 4 MG/2 ML Vial IVP PRN ×2 (04:52→06:02)
[2019-01-15] MEDS ORDERED: Ondansetron ODT 4 MG TAB SL PRN (04:52)
[2019-01-15] MEDS ORDERED: Sodium Chloride 0.9% 1,000 ML IV SCH ×2 (04:52→06:02)
[2019-01-15 05:16] VITALS: BMI 27.8
[2019-01-15] MEDS ORDERED: Nitroglycerin 0.4 MG TAB (25 Tab Bottle) SL PRN (06:02)
--- NOTE | 2019-01-15 06:37 | HP ---
PRESENTING COMPLAINT: Fever and chills with shortness of breath. HISTORY OF PRESENT ILLNESS: Ms. Vineet Billingsley is an 89-year-old female with history of hypertension, hypothyroidism, atrial fibrillation, status post AICD, coronary artery disease, status post CABG with bioprosthetic aortic valve replacement, low ejection fraction with last EF of 30%, developed worsening shortness of breath with fever and chills. She does also admit to nasal congestion. She denies any sick contacts. She was evaluated at an outside medicine emergency room. Flu swab was positive for influenza A and B. The patient was also noted to have mild wheezing which responded with DuoNeb. She was transferred here for further management. She denies similar symptoms in the past. She admits to decreased p.o. intake in the last couple of days. Denies any dizziness or headache now. PAST MEDICAL HISTORY: Significant for atrial fibrillation, rheumatoid arthritis, hypertension, systolic CHF, EF of 30%, coronary artery disease, status post CABG, history of aortic valve bioprosthetic replacement, history of coronary artery disease, status post PCIs and stent, history of status post bowel resection. PAST SURGICAL HISTORY: Include bilateral tubal ligation, hysterectomy. FAMILY HISTORY: Significant for hypertension and CVA. SOCIAL HISTORY: The patient resides in the community with her daughter. She is ambulatory at baseline. No history of alcohol, tobacco, or illicit drug use. ALLERGIES: INCLUDE CODEINE, METHOTREXATE, PENICILLIN, AND SULFA. HOME MEDICATIONS: Include 1. Xarelto. 2. Synthroid. 3. Folic acid. 4. Cholecalciferol. 5. Cetrizine. 6. Multivitamin. 7. Lipitor. REVIEW OF SYSTEM: Review of systems negative except for generalized aches. All other systems x10 reviewed were negative. PHYSICAL EXAMINATION: VITAL SIGNS: Current, blood pressure of 156/84, pulse of 114, respiratory rate of 20, O2 saturation 97% on room air, temperature 98.7. GENERAL: An elderly female calm, conversant . HEENT: Head is atraumatic, normocephalic. Pupils are equal and reactive to light and dry oral mucosa with no discharge or mucosal plaques. NECK: No JVD. No carotid bruit. RESPIRATORY: Mild bibasilar crepitations, but no wheeze. CARDIOVASCULAR: Sternotomy scar noted. AICD in situ. S1, S2 regular. ABDOMEN: Full, soft, nontender. Bowel sounds positive. EXTREMITIES: No pedal edema. No calf tenderness. NEUROLOGIC: Patient is alert, oriented, and conversant. LABORATORY DATA: WBC 6.5, hemoglobin 10.3, potassium 3.9, bicarb low at 18, creatinine 1.15, albumin 2.8, glucose 78, BUN 20. Urinalysis was positive for ketones. EKG shows a ventricular paced rhythm with wide complexes. Troponin 0.035, repeat of 0.033. IMPRESSION: 1. Influenza A infection. 2. Acute reactive bronchitis due to influenza. 3. Acute kidney injury, likely due to prerenal renal failure. 4. Hypertension .. 5. History of coronary artery disease. PLAN: 1. Influenza. We will start the patient on anti-influenza medication. We will do DuoNebs as needed. We will do gentle IV fluids despite low EF given mild creatinine elevation. The patient's oxygen level slowly improving. We will continue to wean off O2 and follow. 2. Hypertension, borderline control. We will continue to monitor. 3. Mildly elevated troponin. Follow serial set of cardiac enzymes, likely due to demand-mediated ischemia in setting of paced rhythm. 4. Acute kidney injury. Follow with gentle IV fluid, follow repeat. Care to avoid excessive fluid overload given low EF. 5. Deep venous thrombosis prophylaxis subcutaneous Lovenox. ADVANCED DIRECTIVES: Discussed with the patient and she wishes to be DNR. Job ID: [id number]
[2019-01-15 07:36] LABS: Troponin I 0.064 ng/mL (< 0.028)
[2019-01-15] MEDS: Rivaroxaban 15 MG TAB PO SCH (08:06)
[2019-01-15] MEDS: Oseltamivir 75 MG CAP PO SCH ×2 (08:13→20:52)
[2019-01-15] MEDS ORDERED: Famotidine 20 MG TAB PO SCH (09:00)
[2019-01-15] MEDS ORDERED: Metoprolol Tartrate 5 MG/5 ML VIAL IVP SCH (10:34)
--- NOTE | 2019-01-15 13:14 | PDOC.HOSPP ---
- Subjective Encounter Date: 01/15/19 Encounter Time: 10:45 Subjective: awake, breathing better daughter at bedside says she is not wheezing now no c/o palpitations - Objective Vital Signs & Weight: Vital Signs (12 hours) Temp Pulse Pulse Pulse Resp BP BP 01/15/19 12:00 01/15/19 11:30 75 92 143/78 H 152/122 H 01/15/19 11:20 98.2 F 96 27 H 01/15/19 07:37 96.2 F L 95 16 01/15/19 04:55 BP Pulse Ox 01/15/19 12:00 96 01/15/19 11:30 01/15/19 11:20 135/76 96 01/15/19 07:37 134/71 95 01/15/19 04:55 97 Weight Weight 157 lb 4.8 oz Hospitalist ROS - Medication Medications: Active Medications Generic Name Dose Route Start Last Admin Trade Name Freq PRN Reason Stop Dose Admin Oseltamivir Phosphate 75 mg 01/15/19 09:00 01/15/19 08:13 Tamiflu PO 01/19/19 21:01 75 mg BID ALEX Administration Rivaroxaban 15 mg 01/15/19 09:00 01/15/19 08:06 Xarelto PO 15 mg DAILY ALEX Administration - Exam General Appearance: awake alert Eye: PERRL, anicteric sclera ENT: no oropharyngeal lesions, dry oral mucosa Neck: supple, no JVD Heart: no murmur, irregular Respiratory: no wheezes, no rales, rhonchi Gastrointestinal: soft, non-tender, non-distended, normal bowel sounds Extremities: no cyanosis, no edema Neurological: cranial nerve grossly intact, no focal deficits Psychiatric: A&O x 3 Hosp A/P (1) Influenza Code(s): J11.1 - FLU DUE TO UNIDENTIFIED INFLUENZA VIRUS W OTH RESP MANIFEST Status: Acute (2) Bronchitis Code(s): J40 - BRONCHITIS, NOT SPECIFIED ACUTE OR CHRONIC Status: Acute (3) Atrial fibrillation with RVR Code(s): I48.91 - UNSPECIFIED ATRIAL FIBRILLATION Status: Acute (4) CAD (coronary artery disease) Code(s): I25.10 - ATHSCL HEART DISEASE OF THE [place] CORONARY ARTERY W/O ANG PCTRS Status: Chronic Qualifiers: Coronary Disease-Associated Artery/Lesion type: bypass graft [place] vs. transplanted heart: [place] heart Associated angina: without angina Qualified Code(s): I25.810 - Atherosclerosis of coronary artery bypass graft(s) without angina pectoris (5) HTN (hypertension) Code(s): I10 - ESSENTIAL (PRIMARY) HYPERTENSION Status: Chronic Qualifiers: Hypertension type: essential hypertension Qualified Code(s): I10 - Essential (primary) hypertension (6) Hypothyroidism Code(s): E03.9 - HYPOTHYROIDISM, UNSPECIFIED Status: Chronic Qualifiers: Hypothyroidism type: unspecified Qualified Code(s): E03.9 - Hypothyroidism , unspecified (7) Rheumatoid arthritis Code(s): M06.9 - RHEUMATOID ARTHRITIS, UNSPECIFIED Status: Chronic - Plan is on tamiflu (says she got influenza vaccine when she got hospitalized here last month) dc iv fluids nonsustained vtac, has underlying lbbb with wide qrs and afib with rvr, freq pvc 's one dose lopressor 5mg iv, cardizem drip 5mg/hr (pt will need duonebs due to influenza and bronchitis) cardiology consultation discussed code status with patient and poa daughter at bedside, they want to be DNAR has chronic unstable chest due to non union of sternum post cabg continue xarelto, coreg, synthroid and lipitor family says she was taken off of all cardiac meds recently after cardioversion? At baseline pt is bed and wheel chair dependent
[2019-01-15] MEDS: Diltiazem 125 MG in Sodium Chloride 0.9% 100 ML IVPB SCH (13:38)
[2019-01-15] MEDS ORDERED: Haloperidol Lactate 5 MG/ML VIAL SLOW IVP PRN (16:35)
[2019-01-15] MEDS ORDERED: ALPRAZolam 0.25 MG TAB PO PRN (16:36)
[2019-01-15] MEDS: Carvedilol 6.25 MG TAB PO SCH (18:16)
[2019-01-15] MEDS: Guaifenesin DM 100-10/5 ML UDCUP PO PRN (20:52)
[2019-01-15] MEDS: Acetaminophen 325 MG TAB PO PRN (20:52)
[2019-01-15] MEDS: Atorvastatin Calcium 20 MG TAB PO SCH (20:54)
--- NOTE | 2019-01-15 23:01 | CON ---
DATE OF CONSULTATION: PRIMARY CARE DOCTOR: Tracy Barroso MD. PRIMARY PAPER SEALER: Mj Viveros MD. REASON FOR CARDIOLOGY CONSULT: For atrial fibrillation with RVR, possible nonsustained VTach. HISTORY OF PRESENT ILLNESS: Ms. Manley is 89 years old female with significant history of hypertension, chronic systolic congestive heart failure, atrial fibrillation, ischemic cardiomyopathy with AICD placement, hypertension, CAD with CABG x1, bioprosthetic AVR. The patient was evaluated at outside emergency room and the patient's flu swab was showing positive for influenza A and B. The patient was transferred to the emergency department. The patient was found to have atrial fibrillation with rapid ventricular response. At this moment, the patient is on diltiazem IV drip of 5 mg an hour. EKG has shown atrial fibrillation with heart rate in the 70s to 80s. At this moment, the patient is very confused. The patient's information was obtained from patient's medical record. At this moment, the patient denies any chest pain, heaviness, tightness, dizziness, lightheadedness, or any other cardiac complaints but the patient is complaining of discomfort all over the body, possible due to fever from influenza A and B. The patient underwent cardiac catheterization by Dr. Ackerman in June 2015 and in 2017 with stent placement in the LAD into the 1st diagonal, and patent JOHNSON to LAD graft, 30% stenosis in RCA and the left main is normal. The patient has a history of atrial fibrillation and the patient underwent cardiac cardioversion in August 2018; however, according to the patient defibrillator shows she converted back to atrial fibrillation right after the patient underwent cardioversion. The patient had echocardiogram done in December 2017 with EF of 25% to 30%, severe left atrial enlargement, bioprosthetic aortic valve which is normal function, moderate tricuspid regurgitation suggesting grade 1 diastolic dysfunction, [id number] mitral valve regurgitation. The patient has a possible UTI also. PAST MEDICAL HISTORY: Described as above. PAST SURGICAL HISTORY: CABG x1, hemorrhoid repair, hysterectomy, AICD placement, stent placement, tubal ligation, status post bioprosthetic AVR, cardioversion in August 2018. FAMILY HISTORY: Significant for hypertension and CVA. SOCIAL HISTORY: The patient resides in the community with her daughter. She is ambulatory at baseline. No history of EtOH, tobacco, or illicit drug abuse. ALLERGIES: SHE IS ALLERGIC TO CODEINE, METHOTREXATE, PENICILLIN, AND SULFA. HOME MEDICATIONS: 1. Xarelto 50 mg once a day. 2. Vitamin D3 at 5000 units once a day. 3. Atorvastatin 20 mg once a day. 4. Ocuvite Adult 50+ one tablet once a day. 5. Zyrtec 10 mg once a day. 6. Folic acid 1 mg once a day. 7. Levothyroxine 25 mcg once a day. REVIEW OF SYSTEMS: 12-point review of system is unable to obtain due to the patient's confusion. PHYSICAL EXAMINATION: VITAL SIGNS: Blood pressure 135/76, temperature 98.2, O2 sats 96% 2 L nasal cannula, pulse is 96, atrial fibrillation. GENERAL: The patient is very lethargic. The patient is very confused at this moment. EYES: Extraocular muscle movement intact. ENT AND MOUTH: Oral and mouth is very dry at this moment. NECK: Supple. Normal range of motion. No JVD. RESPIRATORY: Rhonchi to the bilateral lower lobes. CARDIOVASCULAR: Irregularly irregular. She has a murmur to the left mitral valve area and the patient has fluttering in the sternum. EXTREMITIES: 2+ pulses in the bilateral lower extremities. No edema in the lower extremities at this moment, although the patient is complaining of swelling in the lower extremities. ABDOMEN: Soft, nontender. No mass to palpitate. Bowel sounds are present but very hypoactive at this moment. MUSCULOSKELETAL: The patient is moving in the bed, however, very slow at this moment. The patient denied claudication. SKIN: Warm and dry. No erythema, lesion, or hematoma noted except the patient's bilateral upper extremities due to starting IV or drawing blood. NEUROLOGIC: The patient is very lethargic at this moment and confused. LABORATORY DATA: WBC 6.5, hemoglobin 10.3, hematocrit 34.0, platelet 372. Sodium 138, potassium 3.9, BUN 20, creatinine 1.15, glucose 78, lactic acid 1.5, calcium 10, AST 24, ALT 10, CK-MB 3.1, troponins 0.035, 0.033, 0.064. The patient's TSH in December 24 was 1.4057 and T4 is 1.01. IMAGING STUDIES: The patient's chest x-ray shows partial collapse of right lower lobe, moderate effusion, and no pneumothorax. ASSESSMENT AND PLAN: 1. Atrial fibrillation with rapid ventricular response and possible nonsustained ventricular tachycardia. The patient's automatic implantable cardioverter-defibrillator was interrogated showing the patient continued having atrial fibrillation since August 2018. We used several termination by the pacemaker. We would like to order EP consult for this patient for further AICD management, but the patient's heart rate is stable at this moment with Cardizem 5 mg one per day. She is on Xarelto 50 mg p.o. once a day. Although the patient is confused, she is very weak to get up from the bed at this moment. 2. Acute on chronic systolic heart failure. The patient's BNP is 475.7. She is on carvedilol 6.25 mg twice a day. She is not on diuretic at this moment. At home, she is on Lasix 40 mg 5 times a day. We would like to continue to monitor the patient's vital signs and daily weight and we would like to resume diuretic for this patient. 3. Coronary artery disease status post coronary artery bypass graft and stent placement in 2017. At this moment, the patient is asymptomatic. She is on a beta edgardo, aspirin, and statin right now. 4. Hypothyroidism. The patient's thyroid in December 2018 was stable with 25 mcg of levothyroxine. 5. Hypertension. The patient's blood pressure is stable at this moment. We would like to continue to monitor. Thank you very much for Cardiology Service to participate in the care of this patient. We will follow along the patient's care team and make further recommendations as appropriate. Job ID: [id number]
[2019-01-16 05:09] LABS: Anion Gap 15 mmol/L (10-20); BUN (Urea Nitrogen) 32 mg/dL (9.8-20.1); Calc. Creatinine Clearance 36 mL/min (70-130); Calcium 9.2 mg/dL (7.8-10.44); Carbon Dioxide 16 mmol/L (23-31); Chloride 106 mmol/L (98-107); Estimated GFR-MDRD 41; Glucose 163 mg/dL (83-110); Potassium 4.5 mmol/L (3.5-5.1); Sodium 132 mmol/L (136-145)
[2019-01-16] MEDS: Levothyroxine Sodium 25 MCG TAB PO SCH (05:17)
[2019-01-16 05:18] LABS: Band 15 % (5-11); Lymphocytes 4 % (21-51); MDiff Complete? YES; Mean Corpuscular HGB CONC 31.4 g/dL (32.0-36.0); Mean Corpuscular Hemoglobin 31.3 pg (27.0-31.0); Mean Corpuscular Volume 99.8 fL (78.0-98.0); Mean Platelet Volume 7.2 fL (7.4-10.4); Monocytes 3 % (0-10); Neutrophil 78 % (42-75); Platelet Count 280 thou/uL (130-400); RBC Distribution Width 15.3 % (11.5-14.5); Red Blood Cell (RBC) Count 3.19 mill/uL (4.20-5.40); White Blood Cell (WBC) Count 11.2 thou/uL (4.8-10.8)
[2019-01-16] MEDS: Rivaroxaban 15 MG TAB PO SCH (09:30)
[2019-01-16] MEDS: Carvedilol 6.25 MG TAB PO SCH ×2 (09:31→16:47)
[2019-01-16] MEDS: Oseltamivir 75 MG CAP PO SCH ×2 (09:31→20:04)
[2019-01-16] MEDS: Famotidine 20 MG TAB PO SCH (09:32)
[2019-01-16] MEDS: Acetaminophen 325 MG TAB PO PRN ×2 (10:14→20:04)
[2019-01-16] MEDS: Guaifenesin DM 100-10/5 ML UDCUP PO PRN (10:14)
--- NOTE | 2019-01-16 10:42 | CON ---
DATE OF CONSULTATION: 01/15/2019 ADDENDUM: This is an addendum to the note already dictated by my nurse practitioner, Leola Dudley. We have discussed this patient. I would agree with the assessment and plan by the nurse practitioner. HISTORY OF PRESENT ILLNESS: This is a very unfortunate 89-year-old female, who has what appears to be a chronic atrial fibrillation. She was admitted with influenza and has coughing and also was noted to have atrial fibrillation with rapid ventricular response. The atrial fibrillation is not new. Her device is interrogated. She does have short runs of nonsustained ventricular tachycardia, this could be possibly atrial fibrillation with rapid ventricular response and not necessarily ventricular tachycardia, only a few areas which show what appears to be some organized nonsustained ventricular tachycardia. Otherwise, the patient appears to be relatively asymptomatic with the problems that she has with the arrhythmias. Otherwise, she seems to be doing well from a cardiac standpoint, despite having the significant arrhythmias and chronic atrial fibrillation. She does have a congestive heart failure, decrease in left ventricular function, hypertension, and coronary artery disease. She has had an aortic valve replacement. She has an ICD placed. She has had a hysterectomy. She has had multiple medical problems and is a very elderly, sick, ill-appearing female at this time. PHYSICAL EXAMINATION: VITAL SIGNS: Her vital signs show a blood pressure to be elevated at 150/74. She is afebrile at this time. Respiratory rate 22 and heart rate is in the 80s to 90s up to 100 with an irregular heart rate compatible with her atrial fibrillation. She is occasionally pacing. HEENT: Unremarkable. CHEST: Her chest has a diffuse scattered rhonchi. She has occasional coughing. On evaluation, her sternum appears to be unstable, has some significant amount of noise when auscultate. Otherwise, there are no significant abnormalities. CARDIOVASCULAR: Reveals an irregularly irregular rhythm. She has systolic murmur at the upper sternal border and also at the apex. ABDOMEN: Shows obesity. Positive bowel sounds. EXTREMITIES: Show no clubbing or cyanosis. Pedal pulses are difficult to palpate. NEUROLOGIC: The patient is completely confused. She does not offer of any significant correct answers. She is unaware of where she is. She did try to eat, was unable to eat, will need some assistance with her eating. LABORATORY DATA: Shows troponin to be indeterminate at 0.035, increased up to 0.064. At this time, she is not a candidate for further intervention or evaluation. Her hemoglobin is 10.3 with a hematocrit of 34 and WBC is 6.5. Her INR is 1.4. IMPRESSION AND PLAN: As far as her impression is; 1. Influenza and also dehydration. She has been treated with antibiotics as well as fluid replacement. 2. Chronic atrial fibrillation with rapid ventricular response, which may be due also to the fact that she is somewhat dehydrated and has influenza. She is also on Coreg. We will continue the Coreg for the rate control as well as p.r.n. metoprolol as needed. She is also on IV diltiazem. We will be careful with the IV diltiazem due to her cardiomyopathy. 3. She has a decrease in her left ventricular systolic function, the last one I saw was from 2015, which showed ejection fraction to be significant compromised and I would imagine with an automatic implantable cardioverter-defibrillator, her ejection fraction was compromised. Last ejection fraction was 25% to 30% on the hospital echocardiograms. May need to repeat an echocardiogram if one has not been done recently in the office. At this time, we will try to keep her comfortable. We will continue to hopefully control her heart rate with medications and we will ask the concession worker perhaps to see the patient in consultation. She was recently seen by Dr. Miranda in August of this year and underwent cardioversion, but it appears that this obviously was not successful. Job ID: [id number] MTDD
--- NOTE | 2019-01-16 11:27 | CON ---
DATE OF CONSULTATION: 01/16/2019 HISTORY OF PRESENT ILLNESS: I am seeing Ms. Manley at our [facility] Telemetry Floor as an Electrophysiology oracle adf consultant regarding her atrial fibrillation with rapid ventricular rates. Her problems are: 1. Recurrent atrial fibrillation with rapid ventricular rates. a. History of persistent atrial fibrillation since this summer of this year. b. Status post cardioversion on 09/07/2018 with recurrence since. 2. Adequate functioning Medtronic Viva quad Bi-V ICD with atrial sensing at 0.4 mV. a. Suboptimal Bi-V pacing during atrial fibrillation with rapid rates are noted. 3. Chronic systolic congestive heart failure with ischemic cardiomyopathy. a. History of coronary artery bypass grafting surgery/aortic valve replacement in May 2015. b. Patent JOHNSON to LAD, stent placement into the proximal LAD single-vessel disease. c. 2D echo this year reveals reduced LVEF in 25% to 30% range. 4. Acute influenza A and B. a. Elevated CHADS-VASc score with age and gender, CHF and coronary vascular disease at 5 on Xarelto. 5. History of hypertension. ALLERGIES: INCLUDE CODEINE, METHOTREXATE, PENICILLIN, AND SULFA. MEDICATIONS: At home included: 1. Levothyroxine. 2. Folic acid. 3. Cetirizine. 4. . 5. Atorvastatin. 6. Cholecalciferol. 7. Rivaroxaban. SUBJECTIVE: Ms. Manley is here with progressive wheezing, respiratory distress, and flu swab was positive for influenza A and B. She was noted to be in persistent atrial fibrillation with rapid rates, requiring IV diltiazem. Dr. Goldstein, I was consulted for management for atrial fibrillation. Currently, the patient is improving, still mildly confused, but location. She does not pass out. No stroke-like symptoms. No neurological deficits. Denies angina. No true loss of consciousness. Rest of 12-point review of system otherwise unremarkable. PAST MEDICAL HISTORY: As above, history of hypothyroidism on replacement, rheumatoid arthritis, history of DVT in the past, ischemic cardiomyopathy, aortic valve replacement which is bioprosthetic. SOCIAL HISTORY: She is a assisted resident. FAMILY HISTORY: Hypertension and CVA. OBJECTIVE DATA: VITAL SIGNS: Blood pressure is 120/58, heart rate 65, respirations 20, and temperature 97.6 degrees Fahrenheit. GENERAL: Alert and oriented woman, in no apparent distress. She is only alert and oriented to time and person, not to place. NECK: Supple. Jugular veins not distended. CHEST: Coarse with few wheezes. No fine crackles. HEART: Sounds are regular to rate and rhythm. No murmur or gallop. Left precordial ICD insertion site is well healed. ABDOMEN: Benign. Bowel sounds positive. EXTREMITIES: Lower extremities without edema, clubbing, or cyanosis. DATABASE: EKG reviewed reveals atrial fibrillation with competing ventricular pacing. Telemetry strips reveal now well controlled ventricular rate on diltiazem with ventricular pacing. Previously atrial fibrillation RVR is seen. LABORATORY DATA: White cell count 11.2, hemoglobin 10, platelet count is 280. Sodium 132, potassium 4.5, BUN is 32, and creatinine 1.24. The chest x-ray shows moderate effusions. No pneumothorax. Partial collapse of the right lower lobe. ASSESSMENT AND PLAN: Ms. Manley is an 89-year-old woman with multiple morbidities, which include ischemic heart disease with severe reduced LVEF. Atrial fibrillation is now persisting and also chronic kidney disease and hypertension. She is now admitted with influenza. Her atrial fibrillation is noted to persisting since August when the cardioversion was performed last. She is well anticoagulated, but rate control is suboptimal. Hence, the biventricular pacing is also less than optimal at this time. Now with IV diltiazem, her rates are all more adequate. She seems to be off her usual rate-controlling agents. My plan at this point would be continue supportive care for influenza and rate-controlling measures and IV diltiazem. Once blood pressure allows, I would restart her usual beta edgardo regimen if rate control is an issue long-term after medical recovery, even though ablation is a potential option. High CHADS-VASc score. Continue Xarelto or alternative. CHF as per Dr. Goldstein. Hopefully, can improve the biventricular pacing percentage to be reduced LV dyssynchrony. Bi-V ICD with adequate function. Continue monitoring. Job ID: [id number]
[2019-01-16] MEDS: Diltiazem 125 MG in Sodium Chloride 0.9% 100 ML IVPB SCH (13:11)
--- NOTE | 2019-01-16 13:59 | PDOC.HOSPP ---
- Subjective Encounter Date: 01/16/19 Encounter Time: 10:00 Subjective: awake, not oriented follows some verbal stimuli is hungry, needs help feeding is unable to clear secretions at 30degrees head end elevation - Objective Vital Signs & Weight: Vital Signs (12 hours) Temp Pulse Resp BP Pulse Ox 01/16/19 13:24 97 01/16/19 13:22 60 20 97 01/16/19 13:17 60 20 92 L 01/16/19 11:35 98.2 F 62 18 121/56 L 99 01/16/19 07:45 94 L 01/16/19 07:20 98.9 F 97 22 H 133/76 96 01/16/19 03:00 97.6 F 65 20 121/58 L 95 Weight Weight 157 lb 4.8 oz Result Diagrams: 01/16/19 04:12 01/16/19 04:12 Hospitalist ROS - Medication Medications: Active Medications Generic Name Dose Route Start Last Admin Trade Name Freq PRN Reason Stop Dose Admin Acetaminophen 650 mg 01/15/19 06:02 01/16/19 10:14 Tylenol PO 650 mg Q4H PRN Administration Headache/Fever/Mild Pain (1-3) Albuterol/Ipratropium 3 ml 01/16/19 13:00 01/16/19 13:17 Duoneb NEB 3 ml [id number] ALEX Administration Atorvastatin Calcium 20 mg 01/15/19 21:00 01/15/19 20:54 Lipitor PO 20 mg HS ALEX Administration Carvedilol 6.25 mg 01/15/19 17:00 01/16/19 09:31 Coreg PO 6.25 mg BID-WM ALEX Administration Famotidine 20 mg 01/16/19 09:00 01/16/19 09:32 Pepcid PO 20 mg Q24HR ALEX Administration Guaifenesin/Dextromethorphan 15 ml 01/15/19 06:02 01/16/19 10:14 Robitussin Dm PO 15 ml Q4H PRN Administration Cough Diltiazem HCl 125 mg/ Sodium 125 mls @ 5 mls/hr 01/15/19 12:00 01/16/19 13:11 Chloride IVPB 125 mls INF ALEX Administration Protocol 5 MG/HR Levothyroxine Sodium 25 mcg 01/16/19 06:00 01/16/19 05:17 Synthroid PO 25 mcg 0600 ALEX Administration Oseltamivir Phosphate 75 mg 01/15/19 09:00 01/16/19 09:31 Tamiflu PO 01/19/19 21:01 75 mg BID ALEX Administration Rivaroxaban 15 mg 01/15/19 09:00 01/16/19 09:30 Xarelto PO 15 mg DAILY ALEX Administration - Exam General Appearance: awake alert, ill appearing Eye: PERRL, anicteric sclera ENT: no oropharyngeal lesions, moist mucosa Neck: supple, no JVD Heart: no murmur, irregular Respiratory: no wheezes, no rales, rhonchi Gastrointestinal: soft, non-tender, non-distended, normal bowel sounds Extremities: no cyanosis, no edema Neurological: cranial nerve grossly intact, no focal deficits Hosp A/P (1) Influenza Code(s): J11.1 - FLU DUE TO UNIDENTIFIED INFLUENZA VIRUS W OTH RESP MANIFEST Status: Acute (2) Bronchitis Code(s): J40 - BRONCHITIS, NOT SPECIFIED ACUTE OR CHRONIC Status: Acute (3) Atrial fibrillation with RVR Code(s): I48.91 - UNSPECIFIED ATRIAL FIBRILLATION Status: Acute (4) CAD (coronary artery disease) Code(s): I25.10 - ATHSCL HEART DISEASE OF [place] CORONARY ARTERY W/O ANG PCTRS Status: Chronic Qualifiers: Coronary Disease-Associated Artery/Lesion type: bypass graft [place] vs. transplanted heart: [place] heart Associated angina: without angina Qualified Code(s): I25.810 - Atherosclerosis of coronary artery bypass graft(s) without angina pectoris (5) HTN (hypertension) Code(s): I10 - ESSENTIAL (PRIMARY) HYPERTENSION Status: Chronic Qualifiers: Hypertension type: essential hypertension Qualified Code(s): I10 - Essential (primary) hypertension (6) Hypothyroidism Code(s): E03.9 - HYPOTHYROIDISM, UNSPECIFIED Status: Chronic Qualifiers: Hypothyroidism type: unspecified Qualified Code(s): E03.9 - Hypothyroidism , unspecified (7) Rheumatoid arthritis Code(s): M06.9 - RHEUMATOID ARTHRITIS, UNSPECIFIED Status: Chronic - Plan is on tamiflu (says she got influenza vaccine when she got hospitalized here last month) nonsustained vtac, has underlying lbbb with wide qrs and afib with rvr, freq pvc 's on cardizem drip 5mg/hr (pt will need duonebs due to influenza and bronchitis) and have evaluated patient. 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
[2019-01-16] MEDS: Atorvastatin Calcium 20 MG TAB PO SCH (20:04)
[2019-01-17] MEDS: Levothyroxine Sodium 25 MCG TAB PO SCH (05:58)
[2019-01-17] MEDS ORDERED: Diltiazem 125 MG in Sodium Chloride 0.9% 100 ML IVPB SCH (07:34)
[2019-01-17] MEDS: Oseltamivir 75 MG CAP PO SCH ×2 (08:57→20:36)
[2019-01-17] MEDS: Famotidine 20 MG TAB PO SCH (08:57)
[2019-01-17] MEDS: Carvedilol 6.25 MG TAB PO SCH ×3 (08:57→20:35)
[2019-01-17] MEDS: Rivaroxaban 15 MG TAB PO SCH (08:57)
--- NOTE | 2019-01-17 10:23 | PDOC.CPN ---
- Subjective Date: 01/17/19 Time: 11:00 Interval history: EP PROGRESS NOTE:01/17/19 Follow up for atrial fibrillation and BiV ICD management. Positive influenza with CHF exacerbation and A Fib with RVR. Responds to voice, not conversing during exam. Fell asleep mid exam. - Review of Systems ROS unobtainable: due to mental status - Objective Allergies/Adverse Reactions: Allergies Allergy/AdvReac Type Severity Reaction Status Date / Time methotrexate Allergy Intermediate Short of Verified 09/06/18 13:52 Breath penicillin G Allergy Intermediate Rash Verified 09/06/18 13:52 ciprofloxacin Allergy Verified 09/06/18 13:52 codeine AdvReac Verified 09/06/18 13:52 Sulfa (Sulfonamide AdvReac Verified 09/06/18 13:52 Antibiotics) Visit Medications: Current Medications Acetaminophen (Tylenol) 650 mg PO Q4H PRN PRN Reason: Headache/Fever/Mild Pain (1-3) Last Admin: 01/16/19 20:04 Dose: 650 mg Albuterol/Ipratropium (Duoneb) 3 ml NEB Q6H PRN PRN Reason: .SHORTNESS OF BREATH Albuterol/Ipratropium (Duoneb) 3 ml NEB [id number] ALEX Last Admin: 01/17/19 08:09 Dose: 3 ml Atorvastatin Calcium (Lipitor) 20 mg PO HS ALEX Last Admin: 01/16/19 20:04 Dose: 20 mg Carvedilol (Coreg) 6.25 mg PO TID ALEX Last Admin: 01/17/19 08:57 Dose: 6.25 mg Famotidine (Pepcid) 20 mg PO Q24HR ALEX Last Admin: 01/17/19 08:57 Dose: 20 mg Guaifenesin/Dextromethorphan (Robitussin Dm) 15 ml PO Q4H PRN PRN Reason: Cough Last Admin: 01/16/19 10:14 Dose: 15 ml Haloperidol Lactate (Haldol) 1 mg SLOW IVP HS PRN PRN Reason: Agitation Last Admin: 01/17/19 01:38 Dose: 1 mg Diltiazem HCl 125 mg/ Sodium (Chloride) 125 mls @ 5 mls/hr IVPB INF ALEX; Protocol Levothyroxine Sodium (Synthroid) 25 mcg PO 0600 ALEX Last Admin: 01/17/19 05:58 Dose: 25 mcg Nitroglycerin (Nitrostat) 0.4 mg SL Q5MIN PRN PRN Reason: Chest Pain Ondansetron HCl (Zofran) 4 mg IVP Q6H PRN PRN Reason: Nausea/Vomiting Oseltamivir Phosphate (Tamiflu) 75 mg PO BID [facility] Stop: 01/19/19 21:01 Last Admin: 01/17/19 08:57 Dose: 75 mg Rivaroxaban (Xarelto) 15 mg PO DAILY [facility] Last Admin: 01/17/19 08:57 Dose: 15 mg Sodium Chloride (Flush - Normal Saline) 10 ml IVF Q12HR [facility] Last Admin: 01/17/19 08:57 Dose: 10 ml Sodium Chloride (Flush - Normal Saline) 10 ml IVF PRN PRN PRN Reason: Saline Flush Vital Signs & Weight: Vital Signs Temp Pulse Resp BP Pulse Ox 01/17/19 09:48 65 20 97 01/17/19 08:09 65 20 96 01/17/19 08:00 98.5 F 67 20 139/86 96 01/17/19 04:00 99.1 F 59 L 18 132/60 98 Weight 156 lb - Physical Exam General: cachectic, other (responsive to voice. somnolent.) HEENT: mucus membranes dry Neck: supple neck, midline trachea, no JVD/HJR Cardiac: no murmur, irregularly regular Lungs: bibasilar rales, oxygen Abdomen: soft, no masses, no pulsations/bruits, no hepatosplenomegaly Extremities: no cyanosis, no clubbing, 1+ LE edema - Labs Result Diagrams: 01/18/19 04:34 01/18/19 04:34 Troponin/CKMB Troponin I 0.064 ng/mL (< 0.028) H 01/15/19 07:04 - Telemetry Supraventricular conduction: atrial fibrillation - Assessment/Plan Assessment/Plan: 1. Atrial fibrillation -Previous RVR resulting in suboptimal DRESSED POULTRY GRADER pacing -Continue rate control. Currently on Coreg 6.25mg TID. cardizem gtt stopped 01/17 AM -Plan for AVJ ablation when medically stable and not infectious 2. CHADS2-VASC: 5 -continue Xarelto 3. Congestive Heart failure 4. Influenza 5. Bi V ICD - medtronic - normal function - suboptimal DRESSED POULTRY GRADER pacing with recent RVR Rate control until medically stable and not infectious. Her RVR has been occurring prior to hospitalization and likely contributing to her CHF. She is in a very fragile state this AM. Audible crackles and minimally responsive. VS remain stable but likely poor prognosis. Consider AVJ ablation if medical condition stabilizes. Continue coreg 6.25mg TID and xarelto For now would sign off. Please call if can be further help.
[2019-01-17] MEDS ORDERED: Furosemide 40 MG/4 ML VIAL SLOW IVP SCH (12:15)
--- NOTE | 2019-01-17 12:49 | PDOC.HOSPP ---
- Subjective Encounter Date: 01/17/19 Encounter Time: 09:00 Subjective: awake, not oriented has a weak cough and is not able to clear her throat secretions follows verbal stimuli - Objective Vital Signs & Weight: Vital Signs (12 hours) Temp Pulse Resp BP Pulse Ox 01/17/19 11:46 97.2 F L 67 18 162/91 H 100 01/17/19 11:07 63 18 96 01/17/19 09:48 65 20 97 01/17/19 08:09 65 20 96 01/17/19 08:00 98.5 F 67 20 139/86 96 01/17/19 04:00 99.1 F 59 L 18 132/60 98 Weight Weight 156 lb I&O: 01/16/19 01/17/19 01/18/19 06:59 06:59 06:59 Intake Total 510 Balance 510 Result Diagrams: 01/16/19 04:12 01/16/19 04:12 Hospitalist ROS - Medication Medications: Active Medications Generic Name Dose Route Start Last Admin Trade Name Freq PRN Reason Stop Dose Admin Acetaminophen 650 mg 01/15/19 06:02 01/16/19 20:04 Tylenol PO 650 mg Q4H PRN Administration Headache/Fever/Mild Pain (1-3) Albuterol/Ipratropium 3 ml 01/16/19 13:00 01/17/19 08:09 Duoneb NEB 3 ml [id number] ALEX Administration Atorvastatin Calcium 20 mg 01/15/19 21:00 01/16/19 20:04 Lipitor PO 20 mg HS ALEX Administration Carvedilol 6.25 mg 01/17/19 09:00 01/17/19 08:57 Coreg PO 6.25 mg TID ALEX Administration Famotidine 20 mg 01/16/19 09:00 01/17/19 08:57 Pepcid PO 20 mg Q24HR ALEX Administration Furosemide 40 mg 01/17/19 12:15 01/17/19 12:17 Lasix SLOW IVP 01/17/19 14:15 40 mg NOW ALEX Administration Guaifenesin/Dextromethorphan 15 ml 01/15/19 06:02 01/16/19 10:14 Robitussin Dm PO 15 ml Q4H PRN Administration Cough Haloperidol Lactate 1 mg 01/15/19 16:35 01/17/19 01:38 Haldol SLOW IVP 1 mg HS PRN Administration Agitation Levothyroxine Sodium 25 mcg 01/16/19 06:00 01/17/19 05:58 Synthroid PO 25 mcg 0600 ALEX Administration Oseltamivir Phosphate 75 mg 01/15/19 09:00 01/17/19 08:57 Tamiflu PO 01/19/19 21:01 75 mg BID ALEX Administration Rivaroxaban 15 mg 01/15/19 09:00 01/17/19 08:57 Xarelto PO 15 mg DAILY ALEX Administration Sodium Chloride 10 ml 01/16/19 21:00 01/17/19 08:57 Flush - Normal Saline IVF 10 ml Q12HR ALEX Administration - Exam General Appearance: awake alert, ill appearing Eye: PERRL, anicteric sclera ENT: no oropharyngeal lesions, moist mucosa Neck: supple, no JVD Heart: no murmur, irregular Respiratory: no wheezes, no rales, rhonchi Gastrointestinal: soft, non-tender, non-distended, normal bowel sounds Extremities: 1+ LE edema Neurological: cranial nerve grossly intact, no focal deficits Hosp A/P (1) Influenza Code(s): J11.1 - FLU DUE TO UNIDENTIFIED INFLUENZA VIRUS W OTH RESP MANIFEST Status: Acute (2) Bronchitis Code(s): J40 - BRONCHITIS, NOT SPECIFIED ACUTE OR CHRONIC Status: Acute (3) Atrial fibrillation with RVR Code(s): I48.91 - UNSPECIFIED ATRIAL FIBRILLATION Status: Acute (4) CAD (coronary artery disease) Code(s): I25.10 - ATHSCL HEART DISEASE OF [place] CORONARY ARTERY W/O ANG PCTRS Status: Chronic Qualifiers: Coronary Disease-Associated Artery/Lesion type: bypass graft [place] vs. transplanted heart: [place] heart Associated angina: without angina Qualified Code(s): I25.810 - Atherosclerosis of coronary artery bypass graft(s) without angina pectoris (5) HTN (hypertension) Code(s): I10 - ESSENTIAL (PRIMARY) HYPERTENSION Status: Chronic Qualifiers: Hypertension type: essential hypertension Qualified Code(s): I10 - Essential (primary) hypertension (6) Hypothyroidism Code(s): E03.9 - HYPOTHYROIDISM, UNSPECIFIED Status: Chronic Qualifiers: Hypothyroidism type: unspecified Qualified Code(s): E03.9 - Hypothyroidism , unspecified (7) Rheumatoid arthritis Code(s): M06.9 - RHEUMATOID ARTHRITIS, UNSPECIFIED Status: Chronic - Plan is on tamiflu (says she got influenza vaccine when she got hospitalized here last month) nonsustained vtac, has underlying lbbb with wide qrs and afib with rvr, freq pvc 's off cardizem drip from this am and is on increased freq of coreg tid now. and have evaluated patient. 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
--- NOTE | 2019-01-17 14:12 | RAD ---
PORTABLE CHEST: HISTORY: Cough. Evaluation for infiltrate. COMPARISON: 01/14/2019 FINDINGS: Heart size is enlarged with postop sternotomy change and aortic valve replacement. There is interstit ial change in the lung bases, slightly more prominent in the right base, similar to the prior exam. IMPRESSION: Cardiomegaly with persistent interstitial changes in the right lung base, stable. POS: TPC
[2019-01-17] MEDS: Acetaminophen 325 MG TAB PO PRN (16:14)
--- NOTE | 2019-01-17 17:37 | EKG ---
Test Reason : ROUTINE Blood Pressure : / mmHG Vent. Rate : 094 BPM Atrial Rate : 068 BPM P-R Int : 000 ms QRS Dur : 132 ms QT Int : 412 ms P-R-T Axes : 000 -03 200 degrees QTc Int : 515 ms Ventricular-paced rhythm Abnormal ECG When compared with ECG of 02-JAN-2019 13:17, (Unconfirmed) Vent. rate has increased BY 6 BPM Confirmed by CATIA WU (2) on 01/17/2019 5:36:29 PM Referred By: SYLVESTER Confirmed By:CATIA WU
--- NOTE | 2019-01-17 17:57 | PQF ---
NEYMAR GARCIA VINAYA KUMAR MD [id number] [facility]-282 [id number] CLINICAL DOCUMENTATION IMPROVEMENT CLARIFICATION FORM: ICD-10 Updated PLEASE DO AN ADDENDUM TO THE PROGRESS NOTE WITH ANY DOCUMENTATION UPDATES OR ADDITIONS AND CARRY THROUGH TO DC SUMMARY. THANK YOU. DATE: 01/17/19 ATTN: DR PHAN Please exercise your independent, professional judgment in responding to the clarification form. Clinical indicators are provided on the bottom of this form for your review Please check appropriate box(s): [x ] Acute Respiratory Failure: [ x ] with Hypoxia[ ] with Hypercapnia [ ] Acute Respiratory Failure due to: (etiology) [ ] Other diagnosis [ ] Unable to determine In addition, please specify: Present on Admission (POA): [ x ] Yes [ ] No [ ] Unable to determine For continuity of documentation, please document condition throughout progress notes and discharge summary. Thank You. CLINICAL INDICATORS - SIGNS / SYMPTOMS / LABS / RESULTS AND LOCATION IN MR LOW O2 SATS - PER VITALS - 01/15 20:00 - 92% ON 2L, 01/15 19:00 89% ON 2L, 07:45 94% ON 2L, 01/16 13:17 92% ON 2L, 01/16 20:00 90% ON 2L SHORTNESS OF BRETH - 01/15 H&P CXR - 01/15 MODERATE EFFUSION RISK FACTORS / RESULTS AND LOCATION IN MR IFLUENZA A - 01/15 H&P COPD - 01/15 H&P - HISTORY OF CHF exacerbation - 01/15 CONSULT TREATMENTS / RESULTS AND LOCATION IN MR OXYGEN - 2L PER VITALS 01/15-01/17 Monitoring of oxygenation status- 01/15-01/17 PER VITALS DUONEBS Q6H PRN - 01/15 ORDERS Serial CXR - 01/17 PER ORDERS TAMIFLU - 01/15 PER ORDERS 75 MG PO BID Acute Respiratory Failure: ABG pH < 7.35 or > 7.45; Decreased oxygen saturation (<90% room air or < 95% on oxygen); PCO2 > 50 mm Hg; PO2 < 60 mm Hg; Labored or rapid respirations ARDS: Dx Criteria [[place] ARDS]: Respiratory symptoms within one week of a known clinical insult (e.g. shock, infection, surgery, trauma) Bilateral opacities in CXR/Chest CT not due to CHF or fluid (This form is maintained as a part of the permanent medical record) 2014 [employer], [employer]. All Rights Reserved Laquita [email or web address] [not provided] MTDD
--- NOTE | 2019-01-17 18:04 | PQF ---
NEYMAR GARCIA VINAYA KUMAR MD [id number] [facility]-282 [id number] CLINICAL DOCUMENTATION IMPROVEMENT CLARIFICATION FORM: ICD-10 Updated PLEASE DO AN ADDENDUM TO THE PROGRESS NOTE WITH ANY DOCUMENTATION UPDATES OR ADDITIONS AND CARRY THROUGH TO DC SUMMARY. THANK YOU. DATE: 01/17/19 ATTN: DR PHAN Please exercise your independent, professional judgment in responding to the clarification form. Clinical indicators are provided on the bottom of this form for your review Please check appropriate box(s): [ x ] Encephalopathy: Type: [ x] Acute [ ] Subacute [ ] Chronic Etiology: [ x] Metabolic [ ] Other (please specify) [ ] Other diagnosis [ ] Unable to determine In addition, please specify: Present on Admission (POA): [ x] Yes [ ] No [ ] Unable to determine For continuity of documentation, please document condition throughout progress notes and discharge summary. Thank You. CLINICAL INDICATORS - SIGNS / SYMPTOMS / LABS / RESULTS AND LOCATION IN EMR 01/15 CONSULT - CONFUSED, CANNOT ANSWER QUESTIONS CREATININE 1.15 ON 01/15, 1.24 01/16 RISK FACTORS / RESULTS AND LOCATION IN MR INFLUENZA - 01/15 H&P ROBERT - 01/15 H&P TREATMENTS / RESULTS AND LOCATION IN EMR Neuro checks - 01/15-01/17 PER NUSRING ASSESSMENTS Tamifl - 01/15 per orders - 75 mg po bid Oxygen therapy- 2L PER VITALS - 01/15-01/17 (This form is maintained as a part of the permanent medical record) 2014 [employer]. All Rights Reserved [employer]pshooter Crystal Reports Winform [email or web address] [not provided] MTDD
--- NOTE | 2019-01-17 18:19 | PQF ---
[employer] Retail Aide Crystal Reports Winform ViewerNEYMAR GARCIA VINAYA KUMAR MD [id number] [facility]-[id number] CLINICAL DOCUMENTATION IMPROVEMENT CLARIFICATION FORM: ICD-10 Updated PLEASE DO AN ADDENDUM TO THE PROGRESS NOTE WITH ANY DOCUMENTATION UPDATES OR ADDITIONS AND CARRY THROUGH TO DC SUMMARY. THANK YOU. DATE: 01/17/19 ATTN: DR PHAN Please exercise your independent, professional judgment in responding to the clarification form. Clinical indicators are provided on the bottom of this form for your review Please check appropriate box(s): AMI TYPE: [ x ] Type 2 AL (T2MI) secondary to: [ ] hypertension [ ] arrhythmia [x ] Infection [ ] severe anemia [ ] ischemic stroke [ ] renal failure [ ] heart failure [ ] other [ ] Acute non-ischemic myocardial injury in the absence of AL [ ] Unstable Angina [ ] ACS [ ] Other: [ ] Takotsubo syndrome [ ] Other diagnosis ___ [ ] Unable to determine In addition, please specify: Present on Admission (POA): [ x ] Yes [ ] No [ ] Unable to determine CLINICAL INDICATORS - SIGNS / SYMPTOMS / LABS / RESULTS AND LOCATION IN EMR ELEVATED TROPONIN - 01/15 - 0.035, 0.064 SHORTNESS OF BREATH - 01/15 H&P RISKS / RESULTS AND LOCATION IN EMR Hypertension - 01/15 H&P History of Coronary Artery Disease - 01/15 H&P TREATMENTS / RESULTS AND LOCATION IN EMR Oxygen- 2L PER VITALS 01/15-01/17 Continuous cardiac monitoring - 01/15 PER ORDERS Cardiac consult- 01/15 PER ORDERS [employer] Retail Aide Crystal Reports Winform Viewer(This form is maintained as a part of the permanent medical record) 2014 [employer]. All Rights Reserved Laquita [email or web address] [not provided] MTDD
[2019-01-17] MEDS: Atorvastatin Calcium 20 MG TAB PO SCH (20:35)
[2019-01-18] MEDS: Dextrose 5 % And 0.9 % NaCl 1,000 ML IV SCH ×2 (04:25→04:26)
[2019-01-18 05:01] LABS: #Lymphocytes 1.5 thou/uL (1.20-3.40); #Monocytes 0.8 thou/uL (0.11-0.59); #Neutrophils 4.8 thou/uL (1.40-6.50); %Basophils 0.1 % (0.0-1.0); %Eosinophils 0.5 % (0.0-10.0); %Lymphocytes 20.4 % (21.0-51.0); %Neutrophils 67.9 % (42.0-75.0); Hemoglobin 10.7 g/dL (12.0-16.0); Mean Corpuscular HGB CONC 31.2 g/dL (32.0-36.0); Mean Corpuscular Hemoglobin 30.6 pg (27.0-31.0); Mean Corpuscular Volume 98.3 fL (78.0-98.0); Mean Platelet Volume 7.8 fL (7.4-10.4); Platelet Count 249 thou/uL (130-400); RBC Distribution Width 15.2 % (11.5-14.5); Red Blood Cell (RBC) Count 3.48 mill/uL (4.20-5.40); White Blood Cell (WBC) Count 7.1 thou/uL (4.8-10.8)
[2019-01-18 05:24] LABS: Anion Gap 13 mmol/L (10-20); Calcium 8.7 mg/dL (7.8-10.44); Carbon Dioxide 20 mmol/L (23-31); Chloride 108 mmol/L (98-107); Potassium 3.6 mmol/L (3.5-5.1); Sodium 137 mmol/L (136-145)
[2019-01-18] MEDS: Levothyroxine Sodium 25 MCG TAB PO SCH (05:45)
[2019-01-18 05:53] LABS: BUN (Urea Nitrogen) 36 mg/dL (9.8-20.1); Calc. Creatinine Clearance 43 mL/min (70-130); Estimated GFR-MDRD 51; Glucose 114 mg/dL (83-110); Magnesium 1.7 mg/dL (1.6-2.6)
--- NOTE | 2019-01-18 07:40 | RAD ---
EXAM: Single view of the chest HISTORY: Shortness of breath COMPARISON: 01/17/2019 FINDINGS: Single view of the chest shows an enlarged but stable cardiomediastinal silhouette. The pa tient is status post aortic valve repair. The pacemaker is unchanged in position. There appear to be small bilateral pleural effusions versus atelectasis. The bones are unremarkable. IMPRESSION: Small bilateral pleural effusions with adjacent atelectasis
[2019-01-18] MEDS: Carvedilol 6.25 MG TAB PO SCH ×3 (09:23→21:18)
[2019-01-18] MEDS: Rivaroxaban 15 MG TAB PO SCH (09:23)
[2019-01-18] MEDS: Oseltamivir 75 MG CAP PO SCH ×2 (09:23→21:18)
[2019-01-18] MEDS: Famotidine 20 MG TAB PO SCH (09:27)
[2019-01-18] MEDS ORDERED: Furosemide 20 MG TAB PO SCH (11:00)
--- NOTE | 2019-01-18 13:00 | PDOC.HOSPP ---
- Subjective Encounter Date: 01/18/19 Encounter Time: 10:45 Subjective: awake, says her mouth is dry can cough a bit better but still is weak to clear her oropharyngeal secretions - Objective Vital Signs & Weight: Vital Signs (12 hours) Temp Pulse Resp BP Pulse Ox 01/18/19 12:00 96.7 F L 73 15 131/66 96 01/18/19 08:07 96.9 F L 64 19 125/60 99 01/18/19 07:38 72 15 01/18/19 06:40 96.4 F L 01/18/19 03:48 95.9 F L 64 18 135/79 100 01/18/19 01:23 74 16 96 Weight Weight 155 lb I&O: 01/17/19 01/18/19 01/19/19 06:59 06:59 06:59 Intake Total 510 660 Output Total 400 Balance 510 260 Result Diagrams: 01/18/19 04:34 01/18/19 04:34 Hospitalist ROS - Medication Medications: Active Medications Generic Name Dose Route Start Last Admin Trade Name Freq PRN Reason Stop Dose Admin Acetaminophen 650 mg 01/15/19 06:02 01/17/19 16:14 Tylenol PO 650 mg Q4H PRN Administration Headache/Fever/Mild Pain (1-3) Albuterol/Ipratropium 3 ml 01/16/19 13:00 01/18/19 07:38 Duoneb NEB 3 ml [id number] ALEX Administration Atorvastatin Calcium 20 mg 01/15/19 21:00 01/17/19 20:35 Lipitor PO 20 mg HS ALEX Administration Carvedilol 6.25 mg 01/17/19 09:00 01/18/19 09:23 Coreg PO Not Given TID ALEX Famotidine 20 mg 01/16/19 09:00 01/18/19 09:27 Pepcid PO Not Given Q24HR ALEX Furosemide 20 mg 01/18/19 11:00 01/18/19 11:52 Lasix PO 01/18/19 13:00 20 mg 1100 ALEX Administration Guaifenesin/Dextromethorphan 15 ml 01/15/19 06:02 01/16/19 10:14 Robitussin Dm PO 15 ml Q4H PRN Administration Cough Haloperidol Lactate 1 mg 01/15/19 16:35 01/17/19 01:38 Haldol SLOW IVP 1 mg HS PRN Administration Agitation Levothyroxine Sodium 25 mcg 01/16/19 06:00 01/18/19 05:45 Synthroid PO Not Given 0600 ALEX Oseltamivir Phosphate 75 mg 01/15/19 09:00 01/18/19 09:23 Tamiflu PO 01/19/19 21:01 Not Given BID ALEX Rivaroxaban 15 mg 01/15/19 09:00 01/18/19 09:23 Xarelto PO Not Given DAILY [facility] Sodium Chloride 10 ml 01/16/19 21:00 01/18/19 09:24 Flush - Normal Saline IVF Not Given Q12HR ALEX - Exam General Appearance: awake alert Eye: PERRL, anicteric sclera ENT: no oropharyngeal lesions, dry oral mucosa Neck: supple, no JVD Heart: no murmur, irregular Respiratory: no wheezes, no rales, rhonchi Gastrointestinal: soft, non-tender, non-distended, normal bowel sounds Extremities: no cyanosis, no edema Neurological: cranial nerve grossly intact, no focal deficits Hosp A/P (1) Influenza Code(s): J11.1 - FLU DUE TO UNIDENTIFIED INFLUENZA VIRUS W OTH RESP MANIFEST Status: Acute (2) Bronchitis Code(s): J40 - BRONCHITIS, NOT SPECIFIED ACUTE OR CHRONIC Status: Acute (3) Atrial fibrillation with RVR Code(s): I48.91 - UNSPECIFIED ATRIAL FIBRILLATION Status: Acute (4) CAD (coronary artery disease) Code(s): I25.10 - ATHSCL HEART DISEASE OF [place] CORONARY ARTERY W/O ANG PCTRS Status: Chronic Qualifiers: Coronary Disease-Associated Artery/Lesion type: bypass graft [place] vs. transplanted heart: [place] heart Associated angina: without angina Qualified Code(s): I25.810 - Atherosclerosis of coronary artery bypass graft(s) without angina pectoris (5) HTN (hypertension) Code(s): I10 - ESSENTIAL (PRIMARY) HYPERTENSION Status: Chronic Qualifiers: Hypertension type: essential hypertension Qualified Code(s): I10 - Essential (primary) hypertension (6) Hypothyroidism Code(s): E03.9 - HYPOTHYROIDISM, UNSPECIFIED Status: Chronic Qualifiers: Hypothyroidism type: unspecified Qualified Code(s): E03.9 - Hypothyroidism , unspecified (7) Rheumatoid arthritis Code(s): M06.9 - RHEUMATOID ARTHRITIS, UNSPECIFIED Status: Chronic (8) Acute exacerbation of CHF (congestive heart failure) Code(s): I50.9 - HEART FAILURE, UNSPECIFIED Status: Acute Qualifiers: Heart failure type: systolic Qualified Code(s): I50.23 - Acute on chronic systolic (congestive) heart failure - Plan is on tamiflu 6th dose given this am (says she got influenza vaccine when she got hospitalized here last month) nonsustained vtac, has underlying lbbb with wide qrs and afib with rvr, freq pvc 's, ef is 15% on coreg tid. and have evaluated patient. 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 afib is rate controlled gentle diuresis may tx to medical floor
[2019-01-18] MEDS: Acetaminophen 325 MG TAB PO PRN (14:01)
[2019-01-18] MEDS: Atorvastatin Calcium 20 MG TAB PO SCH (21:18)
[2019-01-19] MEDS: Levothyroxine Sodium 25 MCG TAB PO SCH (05:58)
[2019-01-19 08:19] LABS: #Eosinphils 0.2 thou/uL (0.0-0.7); #Monocytes 0.7 thou/uL (0.11-0.59); %Basophils 0.5 % (0.0-1.0); %Eosinophils 2.5 % (0.0-10.0); %Lymphocytes 25.6 % (21.0-51.0); %Neutrophils 62.5 % (42.0-75.0); Hemoglobin 10.4 g/dL (12.0-16.0); Mean Corpuscular HGB CONC 31.9 g/dL (32.0-36.0); Mean Corpuscular Hemoglobin 31.1 pg (27.0-31.0); Mean Corpuscular Volume 97.5 fL (78.0-98.0); Platelet Count 278 thou/uL (130-400); Red Blood Cell (RBC) Count 3.33 mill/uL (4.20-5.40)
[2019-01-19 08:36] LABS: Anion Gap 9 mmol/L (10-20); BUN (Urea Nitrogen) 31 mg/dL (9.8-20.1); Calc. Creatinine Clearance 47 mL/min (70-130); Calcium 8.2 mg/dL (7.8-10.44); Carbon Dioxide 28 mmol/L (23-31); Chloride 106 mmol/L (98-107); Estimated GFR-MDRD 56; Glucose 99 mg/dL (83-110); Potassium 3.1 mmol/L (3.5-5.1); Sodium 140 mmol/L (136-145)
[2019-01-19] MEDS: Famotidine 20 MG TAB PO SCH (08:56)
[2019-01-19] MEDS: Furosemide 20 MG TAB PO SCH (08:57)
[2019-01-19] MEDS: Oseltamivir 75 MG CAP PO SCH ×2 (08:58→20:16)
[2019-01-19] MEDS: Carvedilol 6.25 MG TAB PO SCH ×3 (08:58→20:16)
[2019-01-19] MEDS: Rivaroxaban 15 MG TAB PO SCH (09:03)
[2019-01-19] MEDS ORDERED: Potassium Chloride 20 MEQ TAB PO SCH (09:30)
--- NOTE | 2019-01-19 12:01 | PDOC.HOSPP ---
- Subjective Encounter Date: 01/19/19 Encounter Time: 09:20 Subjective: awake, not in distress can cough but holds secretions in her throat - Objective Vital Signs & Weight: Vital Signs (12 hours) Temp Pulse Resp BP BP Pulse Ox 01/19/19 11:25 97.9 F 77 22 H 123/79 96 01/19/19 08:58 123/68 01/19/19 08:02 97.5 F L 73 22 H 135/80 97 01/19/19 06:55 72 18 94 L 01/19/19 04:00 97.4 F L 72 17 142/89 H 94 L 01/19/19 00:17 71 16 96 01/19/19 00:00 97.7 F 71 18 128/78 96 Weight Weight 156 lb 2 oz I&O: 01/18/19 01/19/19 01/20/19 06:59 06:59 06:59 Intake Total 660 240 Output Total 400 1050 Balance 260 -810 Result Diagrams: 01/19/19 08:03 01/19/19 08:03 Hospitalist ROS - Medication Medications: Active Medications Generic Name Dose Route Start Last Admin Trade Name Freq PRN Reason Stop Dose Admin Acetaminophen 650 mg 01/15/19 06:02 01/18/19 14:01 Tylenol PO 650 mg Q4H PRN Administration Headache/Fever/Mild Pain (1-3) Albuterol/Ipratropium 3 ml 01/16/19 13:00 01/19/19 06:55 Duoneb NEB 3 ml [id number] ALEX Administration Atorvastatin Calcium 20 mg 01/15/19 21:00 01/18/19 21:18 Lipitor PO 20 mg HS ALEX Administration Carvedilol 6.25 mg 01/17/19 09:00 01/19/19 08:58 Coreg PO 6.25 mg TID ALEX Administration Famotidine 20 mg 01/16/19 09:00 01/19/19 08:56 Pepcid PO 20 mg Q24HR ALEX Administration Furosemide 20 mg 01/19/19 09:00 01/19/19 08:57 Lasix PO 20 mg DAILY ALEX Administration Guaifenesin/Dextromethorphan 15 ml 01/15/19 06:02 01/16/19 10:14 Robitussin Dm PO 15 ml Q4H PRN Administration Cough Haloperidol Lactate 1 mg 01/15/19 16:35 01/17/19 01:38 Haldol SLOW IVP 1 mg HS PRN Administration Agitation Levothyroxine Sodium 25 mcg 01/16/19 06:00 01/19/19 05:58 Synthroid PO 25 mcg 0600 ALEX Administration Oseltamivir Phosphate 75 mg 01/15/19 09:00 01/19/19 08:58 Tamiflu PO 01/19/19 21:01 75 mg BID ALEX Administration Potassium Chloride 40 meq 01/19/19 09:30 01/19/19 10:05 K-Dur PO 01/19/19 12:00 40 meq NOW ALEX Administration Rivaroxaban 15 mg 01/15/19 09:00 01/19/19 09:03 Xarelto PO 15 mg DAILY ALEX Administration Sodium Chloride 10 ml 01/16/19 21:00 01/19/19 08:13 Flush - Normal Saline IVF Not Given Q12HR ALEX - Exam General Appearance: awake alert Eye: PERRL, anicteric sclera ENT: no oropharyngeal lesions, dry oral mucosa Neck: supple, no JVD Heart: RRR, no murmur Respiratory: no wheezes, no rales, rhonchi Gastrointestinal: soft, non-tender, non-distended, normal bowel sounds Extremities: no cyanosis, no edema Neurological: cranial nerve grossly intact, no focal deficits Hosp A/P (1) Influenza Code(s): J11.1 - FLU DUE TO UNIDENTIFIED INFLUENZA VIRUS W OTH RESP MANIFEST Status: Acute (2) Bronchitis Code(s): J40 - BRONCHITIS, NOT SPECIFIED ACUTE OR CHRONIC Status: Acute (3) Atrial fibrillation with RVR Code(s): I48.91 - UNSPECIFIED ATRIAL FIBRILLATION Status: Chronic (4) CAD (coronary artery disease) Code(s): I25.10 - ATHSCL HEART DISEASE OF [place] CORONARY ARTERY W/O ANG PCTRS Status: Chronic Qualifiers: Coronary Disease-Associated Artery/Lesion type: bypass graft [place] vs. transplanted heart: [place] heart Associated angina: without angina Qualified Code(s): I25.810 - Atherosclerosis of coronary artery bypass graft(s) without angina pectoris (5) HTN (hypertension) Code(s): I10 - ESSENTIAL (PRIMARY) HYPERTENSION Status: Chronic Qualifiers: Hypertension type: essential hypertension Qualified Code(s): I10 - Essential (primary) hypertension (6) Hypothyroidism Code(s): E03.9 - HYPOTHYROIDISM, UNSPECIFIED Status: Chronic Qualifiers: Hypothyroidism type: unspecified Qualified Code(s): E03.9 - Hypothyroidism , unspecified (7) Rheumatoid arthritis Code(s): M06.9 - RHEUMATOID ARTHRITIS, UNSPECIFIED Status: Chronic (8) Acute exacerbation of CHF (congestive heart failure) Code(s): I50.9 - HEART FAILURE, UNSPECIFIED Status: Acute Qualifiers: Heart failure type: systolic Qualified Code(s): I50.23 - Acute on chronic systolic (congestive) heart failure - Plan is on tamiflu 8th dose given this am (says she got influenza vaccine when she got hospitalized here last month) nonsustained vtac, has underlying lbbb with wide qrs and afib with rvr, freq pvc 's, ef is 15% on coreg tid. and have evaluated patient. 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 afib is rate controlled gentle diuresis encourage po intake, needs help with feeding
[2019-01-19] MEDS: Atorvastatin Calcium 20 MG TAB PO SCH (20:16)
[2019-01-20] MEDS: Levothyroxine Sodium 25 MCG TAB PO SCH (05:37)
[2019-01-20] MEDS: Furosemide 20 MG TAB PO SCH (08:12)
[2019-01-20] MEDS: Rivaroxaban 15 MG TAB PO SCH (08:12)
[2019-01-20] MEDS: Potassium Chloride 10 MEQ TAB PO SCH (08:12)
[2019-01-20] MEDS: Carvedilol 6.25 MG TAB PO SCH ×2 (08:12→17:15)
[2019-01-20] MEDS: Famotidine 20 MG TAB PO SCH (08:17)
--- NOTE | 2019-01-20 13:50 | PDOC.HOSPP ---
- Subjective Encounter Date: 01/20/19 Encounter Time: 07:15 Subjective: still waking up, not in distress - Objective Vital Signs & Weight: Vital Signs (12 hours) Temp Pulse Resp BP BP Pulse Ox 01/20/19 13:06 82 16 96 01/20/19 08:12 144/94 H 01/20/19 08:00 92 L 01/20/19 06:58 97.3 F L 87 16 144/94 H 91 L 01/20/19 06:18 74 16 94 L 01/20/19 06:16 74 16 94 L Weight Weight 147 lb 8 oz I&O: 01/19/19 01/20/19 01/21/19 06:59 06:59 06:59 Intake Total 240 1360 Output Total 1050 1900 Balance -810 -540 Result Diagrams: 01/19/19 08:03 01/19/19 08:03 Hospitalist ROS - Medication Medications: Active Medications Generic Name Dose Route Start Last Admin Trade Name Freq PRN Reason Stop Dose Admin Acetaminophen 650 mg 01/15/19 06:02 01/18/19 14:01 Tylenol PO 650 mg Q4H PRN Administration Headache/Fever/Mild Pain (1-3) Albuterol/Ipratropium 3 ml 01/16/19 13:00 01/20/19 13:06 Duoneb NEB 3 ml [id number] ALEX Administration Atorvastatin Calcium 20 mg 01/15/19 21:00 01/19/19 20:16 Lipitor PO 20 mg HS ALEX Administration Famotidine 20 mg 01/16/19 09:00 01/20/19 08:17 Pepcid PO 20 mg Q24HR ALEX Administration Furosemide 20 mg 01/19/19 09:00 01/20/19 08:12 Lasix PO 20 mg DAILY ALEX Administration Guaifenesin/Dextromethorphan 15 ml 01/15/19 06:02 01/16/19 10:14 Robitussin Dm PO 15 ml Q4H PRN Administration Cough Haloperidol Lactate 1 mg 01/15/19 16:35 01/17/19 01:38 Haldol SLOW IVP 1 mg HS PRN Administration Agitation Levothyroxine Sodium 25 mcg 01/16/19 06:00 01/20/19 05:37 Synthroid PO 25 mcg 0600 ALEX Administration Potassium Chloride 10 meq 01/20/19 08:00 01/20/19 08:12 Klor-Con 10 PO 10 meq QAM-WM ALEX Administration Rivaroxaban 15 mg 01/15/19 09:00 01/20/19 08:12 Xarelto PO 15 mg DAILY ALEX Administration Sodium Chloride 10 ml 01/16/19 21:00 01/20/19 08:24 Flush - Normal Saline IVF Not Given Q12HR ALEX - Exam Eye: PERRL, anicteric sclera ENT: no oropharyngeal lesions, moist mucosa Neck: supple, no JVD Heart: RRR, no murmur Respiratory: no wheezes, no rales, rhonchi Gastrointestinal: soft, non-tender, non-distended, normal bowel sounds Extremities: no cyanosis, no clubbing Neurological: cranial nerve grossly intact, no focal deficits Hosp A/P (1) Influenza Code(s): J11.1 - FLU DUE TO UNIDENTIFIED INFLUENZA VIRUS W OTH RESP MANIFEST Status: Acute (2) Bronchitis Code(s): J40 - BRONCHITIS, NOT SPECIFIED ACUTE OR CHRONIC Status: Acute (3) Atrial fibrillation with RVR Code(s): I48.91 - UNSPECIFIED ATRIAL FIBRILLATION Status: Chronic (4) CAD (coronary artery disease) Code(s): I25.10 - ATHSCL HEART DISEASE OF [place] CORONARY ARTERY W/O ANG PCTRS Status: Chronic Qualifiers: Coronary Disease-Associated Artery/Lesion type: bypass graft [place] vs. transplanted heart: [place] heart Associated angina: without angina Qualified Code(s): I25.810 - Atherosclerosis of coronary artery bypass graft(s) without angina pectoris (5) HTN (hypertension) Code(s): I10 - ESSENTIAL (PRIMARY) HYPERTENSION Status: Chronic Qualifiers: Hypertension type: essential hypertension Qualified Code(s): I10 - Essential (primary) hypertension (6) Hypothyroidism Code(s): E03.9 - HYPOTHYROIDISM, UNSPECIFIED Status: Chronic Qualifiers: Hypothyroidism type: unspecified Qualified Code(s): E03.9 - Hypothyroidism , unspecified (7) Rheumatoid arthritis Code(s): M06.9 - RHEUMATOID ARTHRITIS, UNSPECIFIED Status: Chronic (8) Acute exacerbation of CHF (congestive heart failure) Code(s): I50.9 - HEART FAILURE, UNSPECIFIED Status: Acute Qualifiers: Heart failure type: systolic Qualified Code(s): I50.23 - Acute on chronic systolic (congestive) heart failure - Plan will finish tamiflu full course today. (says she got influenza vaccine when she got hospitalized here last month) nonsustained vtac, has underlying lbbb with wide qrs and afib with rvr, freq pvc 's, ef is 15% on coreg tid. and have evaluated patient. 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 afib is rate controlled gentle diuresis encourage po intake, needs help with feeding dc plan depends on, if she recovers then skilled, if not to inpt hospice, d/w daughter and son in law
[2019-01-20] MEDS: Atorvastatin Calcium 20 MG TAB PO SCH (20:10)
[2019-01-21] MEDS: Levothyroxine Sodium 25 MCG TAB PO SCH (05:11)
[2019-01-21] MEDS: Carvedilol 6.25 MG TAB PO SCH ×2 (08:02→16:51)
[2019-01-21] MEDS: Furosemide 20 MG TAB PO SCH (08:02)
[2019-01-21] MEDS: Potassium Chloride 10 MEQ TAB PO SCH (08:02)
[2019-01-21] MEDS: Lisinopril 5 MG TAB PO SCH (08:02)
[2019-01-21] MEDS: Famotidine 20 MG TAB PO SCH (08:02)
[2019-01-21] MEDS: Rivaroxaban 15 MG TAB PO SCH (08:03)
--- NOTE | 2019-01-21 11:38 | PDOC.CPN ---
- Subjective Date: 01/21/19 Time: 11:36 Interval history: No new issues. Breathing better. - Review of Systems General: denies: fever/chills, weight/appetite/sleep changes, night sweats, fatigue Respiratory: denies: cough, congestion, shortness of breath, exercise intolerance Cardiovascular: denies: chest pain, palpitation, edema, paroxysmal nocturnal dyspnea, orthopnea Gastrointestinal: denies: nausea, vomiting, diarrhea, constipation, abd pain, GI bleeding Musculoskeletal: denies: pain, tenderness, stiffness, swelling, arthritis/ arthralgias Neurological: denies: numbness, syncope, seizure, weakness - Objective Allergies/Adverse Reactions: Allergies Allergy/AdvReac Type Severity Reaction Status Date / Time methotrexate Allergy Intermediate Short of Verified 09/06/18 13:52 Breath penicillin G Allergy Intermediate Rash Verified 09/06/18 13:52 ciprofloxacin Allergy Verified 09/06/18 13:52 codeine AdvReac Verified 09/06/18 13:52 Sulfa (Sulfonamide AdvReac Verified 09/06/18 13:52 Antibiotics) Visit Medications: Current Medications Acetaminophen (Tylenol) 650 mg PO Q4H PRN PRN Reason: Headache/Fever/Mild Pain (1-3) Last Admin: 01/18/19 14:01 Dose: 650 mg Albuterol/Ipratropium (Duoneb) 3 ml NEB Q6H PRN PRN Reason: .SHORTNESS OF BREATH Albuterol/Ipratropium (Duoneb) 3 ml NEB [id number] [facility] Last Admin: 01/21/19 06:31 Dose: 3 ml Atorvastatin Calcium (Lipitor) 20 mg PO HS [facility] Last Admin: 01/20/19 20:10 Dose: 20 mg Carvedilol (Coreg) 12.5 mg PO BID-WM ALEX Last Admin: 01/21/19 08:02 Dose: 12.5 mg Famotidine (Pepcid) 20 mg PO Q24HR ALEX Last Admin: 01/21/19 08:02 Dose: 20 mg Furosemide (Lasix) 20 mg PO DAILY [facility] Last Admin: 01/21/19 08:02 Dose: 20 mg Guaifenesin/Dextromethorphan (Robitussin Dm) 15 ml PO Q4H PRN PRN Reason: Cough Last Admin: 01/16/19 10:14 Dose: 15 ml Haloperidol Lactate (Haldol) 1 mg SLOW IVP HS PRN PRN Reason: Agitation Last Admin: 01/17/19 01:38 Dose: 1 mg Levothyroxine Sodium (Synthroid) 25 mcg PO 0600 [facility] Last Admin: 01/21/19 05:11 Dose: 25 mcg Lisinopril (Zestril) 5 mg PO DAILY [facility] Last Admin: 01/21/19 08:02 Dose: 5 mg Nitroglycerin (Nitrostat) 0.4 mg SL Q5MIN PRN PRN Reason: Chest Pain Ondansetron HCl (Zofran) 4 mg IVP Q6H PRN PRN Reason: Nausea/Vomiting Potassium Chloride (Klor-Con 10) 10 meq PO QAM-WM [facility] Last Admin: 01/21/19 08:02 Dose: 10 meq Rivaroxaban (Xarelto) 15 mg PO DAILY [facility] Last Admin: 01/21/19 08:03 Dose: 15 mg Sodium Chloride (Flush - Normal Saline) 10 ml IVF Q12HR [facility] Last Admin: 01/21/19 08:05 Dose: Not Given Sodium Chloride (Flush - Normal Saline) 10 ml IVF PRN PRN PRN Reason: Saline Flush Vital Signs & Weight: Vital Signs Temp Pulse Resp BP BP BP Pulse Ox 01/21/19 08:02 94 128/74 01/21/19 08:00 93 L 01/21/19 07:07 98.2 F 94 17 128/74 93 L 01/21/19 06:35 62 16 93 L 01/21/19 06:31 67 16 93 L 01/21/19 05:04 98.2 F 77 20 141/69 H 98 01/21/19 00:00 97.7 F 70 20 124/79 96 01/20/19 23:59 70 12 91 L Weight 147 lb 2.502 oz - Physical Exam General: alert & oriented x3 HEENT: mucus membranes moist Neck: supple neck Cardiac: irregularly regular Lungs: clear to auscultation Neuro: grossly intact Abdomen: active bowel sounds Extremities: no edema Skin: clear Musculoskeletal: no pain - Labs Result Diagrams: 01/19/19 08:03 01/19/19 08:03 Troponin/CKMB Troponin I 0.064 ng/mL (< 0.028) H 01/15/19 07:04 - Assessment/Plan Assessment/Plan: 1. Chronic afib. 2. Bivent AICD. Only paces 67% of the time. 3. S/P CABG/AVR 4. Acute on chronic systolic CHF, EF 15-20% 6. HTN 7. ROBERT, resolved. PLAN: - ACEI/BB - Xarelto for stroke prophylaxis.
--- NOTE | 2019-01-21 12:54 | PDOC.HOSPP ---
- Subjective Encounter Date: 01/21/19 Encounter Time: 09:00 Subjective: Pt seen for followup re; influenza infection. States she feels better. - Objective Vital Signs & Weight: Vital Signs (12 hours) Temp Pulse Resp BP BP BP Pulse Ox 01/21/19 08:02 94 128/74 01/21/19 08:00 93 L 01/21/19 07:07 98.2 F 94 17 128/74 93 L 01/21/19 06:35 62 16 93 L 01/21/19 06:31 67 16 93 L 01/21/19 05:04 98.2 F 77 20 141/69 H 98 Weight Weight 147 lb 2.502 oz I&O: 01/20/19 01/21/19 01/22/19 06:59 06:59 06:59 Intake Total 1360 805 Output Total 1900 Balance -540 805 Result Diagrams: 01/19/19 08:03 01/19/19 08:03 Additional Labs: Labs and MARs reviewed by ct Hospitalist ROS - Review of Systems Respiratory: reports: cough, dry. denies: shortness of breath, hemoptysis, SOB with excertion, pleuritic pain, sputum, wheezing Cardiovascular: denies: chest pain, palpitations, orthopnea, paroxysmal noc. dyspnea, edema, light headedness - Medication Medications: Active Medications Generic Name Dose Route Start Last Admin Trade Name Freq PRN Reason Stop Dose Admin Acetaminophen 650 mg 01/15/19 06:02 01/18/19 14:01 Tylenol PO 650 mg Q4H PRN Administration Headache/Fever/Mild Pain (1-3) Albuterol/Ipratropium 3 ml 01/16/19 13:00 01/21/19 06:31 Duoneb NEB 3 ml [id number] ALEX Administration Atorvastatin Calcium 20 mg 01/15/19 21:00 01/20/19 20:10 Lipitor PO 20 mg HS ALEX Administration Carvedilol 12.5 mg 01/20/19 17:00 01/21/19 08:02 Coreg PO 12.5 mg BID-WM ALEX Administration Famotidine 20 mg 01/16/19 09:00 01/21/19 08:02 Pepcid PO 20 mg Q24HR ALEX Administration Furosemide 20 mg 01/19/19 09:00 01/21/19 08:02 Lasix PO 20 mg DAILY ALEX Administration Guaifenesin/Dextromethorphan 15 ml 01/15/19 06:02 01/16/19 10:14 Robitussin Dm PO 15 ml Q4H PRN Administration Cough Haloperidol Lactate 1 mg 01/15/19 16:35 01/17/19 01:38 Haldol SLOW IVP 1 mg HS PRN Administration Agitation Levothyroxine Sodium 25 mcg 01/16/19 06:00 01/21/19 05:11 Synthroid PO 25 mcg 0600 ALEX Administration Lisinopril 5 mg 01/21/19 09:00 01/21/19 08:02 Zestril PO 5 mg DAILY ALEX Administration Potassium Chloride 10 meq 01/20/19 08:00 01/21/19 08:02 Klor-Con 10 PO 10 meq QAM-WM ALEX Administration Rivaroxaban 15 mg 01/15/19 09:00 01/21/19 08:03 Xarelto PO 15 mg DAILY ALEX Administration Sodium Chloride 10 ml 01/16/19 21:00 01/21/19 08:05 Flush - Normal Saline IVF Not Given Q12HR ALEX - Exam General Appearance: NAD Eye: anicteric sclera ENT: moist mucosa Neck: supple Heart: RRR Respiratory: CTAB Gastrointestinal: soft, non-tender Psychiatric: normal affect, normal behavior Hosp A/P (1) Influenza Code(s): J11.1 - FLU DUE TO UNIDENTIFIED INFLUENZA VIRUS W OTH RESP MANIFEST Status: Acute (2) Acute exacerbation of CHF (congestive heart failure) Code(s): I50.9 - HEART FAILURE, UNSPECIFIED Status: Acute Qualifiers: Heart failure type: systolic Qualified Code(s): I50.23 - Acute on chronic systolic (congestive) heart failure Plan: nyha class 3 (3) S/P CABG (coronary artery bypass graft) Code(s): Z95.1 - PRESENCE OF AORTOCORONARY BYPASS GRAFT Status: Chronic (4) Acute worsening of stage 3 chronic kidney disease Code(s): N18.3 - CHRONIC KIDNEY DISEASE, STAGE 3 (MODERATE) Status: Resolved - Plan out of bed/ambulate Continue furosemide.
[2019-01-21] MEDS: Acetaminophen 325 MG TAB PO PRN (15:05)
[2019-01-21] MEDS: Atorvastatin Calcium 20 MG TAB PO SCH (19:47)
[2019-01-22] MEDS: Levothyroxine Sodium 25 MCG TAB PO SCH (05:23)
[2019-01-22] MEDS: Carvedilol 6.25 MG TAB PO SCH ×2 (08:22→16:58)
[2019-01-22] MEDS: Famotidine 20 MG TAB PO SCH (08:23)
[2019-01-22] MEDS: Rivaroxaban 15 MG TAB PO SCH (08:23)
[2019-01-22] MEDS: Potassium Chloride 10 MEQ TAB PO SCH (08:23)
[2019-01-22] MEDS: Lisinopril 5 MG TAB PO SCH (08:23)
[2019-01-22] MEDS: Furosemide 20 MG TAB PO SCH (08:23)
--- NOTE | 2019-01-22 12:05 | PDOC.CPN ---
- Subjective Date: 01/22/19 Time: 12:04 Interval history: A little less conversant today and daughter in the room states she has not spoken to her all morning. She had been sundowning but it usually started at about 2 or 3 pm. - Review of Systems ROS unobtainable: due to mental status - Objective Allergies/Adverse Reactions: Allergies Allergy/AdvReac Type Severity Reaction Status Date / Time methotrexate Allergy Intermediate Short of Verified 09/06/18 13:52 Breath penicillin G Allergy Intermediate Rash Verified 09/06/18 13:52 ciprofloxacin Allergy Verified 09/06/18 13:52 codeine AdvReac Verified 09/06/18 13:52 Sulfa (Sulfonamide AdvReac Verified 09/06/18 13:52 Antibiotics) Visit Medications: Current Medications Acetaminophen (Tylenol) 650 mg PO Q4H PRN PRN Reason: Headache/Fever/Mild Pain (1-3) Last Admin: 01/21/19 15:05 Dose: 650 mg Albuterol/Ipratropium (Duoneb) 3 ml NEB Q6H PRN PRN Reason: .SHORTNESS OF BREATH Albuterol/Ipratropium (Duoneb) 3 ml NEB [id number] [facility] Last Admin: 01/22/19 06:39 Dose: 3 ml Atorvastatin Calcium (Lipitor) 20 mg PO HS [facility] Last Admin: 01/21/19 19:47 Dose: 20 mg Carvedilol (Coreg) 12.5 mg PO BID-WM [facility] Last Admin: 01/22/19 08:22 Dose: 12.5 mg Famotidine (Pepcid) 20 mg PO Q24HR [facility] Last Admin: 01/22/19 08:23 Dose: 20 mg Furosemide (Lasix) 20 mg PO DAILY [facility] Last Admin: 01/22/19 08:23 Dose: 20 mg Guaifenesin/Dextromethorphan (Robitussin Dm) 15 ml PO Q4H PRN PRN Reason: Cough Last Admin: 01/16/19 10:14 Dose: 15 ml Haloperidol Lactate (Haldol) 1 mg SLOW IVP HS PRN PRN Reason: Agitation Last Admin: 01/17/19 01:38 Dose: 1 mg Levothyroxine Sodium (Synthroid) 25 mcg PO 0600 [facility] Last Admin: 01/22/19 05:23 Dose: 25 mcg Lisinopril (Zestril) 5 mg PO DAILY [facility] Last Admin: 01/22/19 08:23 Dose: 5 mg Nitroglycerin (Nitrostat) 0.4 mg SL Q5MIN PRN PRN Reason: Chest Pain Ondansetron HCl (Zofran) 4 mg IVP Q6H PRN PRN Reason: Nausea/Vomiting Potassium Chloride (Klor-Con 10) 10 meq PO QAM-WM [facility] Last Admin: 01/22/19 08:23 Dose: 10 meq Rivaroxaban (Xarelto) 15 mg PO DAILY [facility] Last Admin: 01/22/19 08:23 Dose: 15 mg Sodium Chloride (Flush - Normal Saline) 10 ml IVF Q12HR [facility] Last Admin: 01/22/19 08:23 Dose: Not Given Sodium Chloride (Flush - Normal Saline) 10 ml IVF PRN PRN PRN Reason: Saline Flush Vital Signs & Weight: Vital Signs Temp Pulse Resp BP Pulse Ox 01/22/19 08:00 98.4 F 82 16 121/75 96 01/22/19 06:40 94 L 01/22/19 06:39 78 16 94 L Weight 147 lb 4.865 oz - Physical Exam General: other HEENT: normocephaly Neck: supple neck Cardiac: regular rate and rhythm, no murmur Lungs: normal breath sounds Abdomen: active bowel sounds, soft, non-tender Extremities: no edema Skin: clear Musculoskeletal: no pain - Labs Result Diagrams: 01/19/19 08:03 01/19/19 08:03 Troponin/CKMB Troponin I 0.064 ng/mL (< 0.028) H 01/15/19 07:04 - Assessment/Plan Assessment/Plan: 1. Chronic afib. 2. Bivent AICD. Only paces 67% of the time. 3. S/P CABG/AVR 4. Acute on chronic systolic CHF, EF 15-20% 6. HTN 7. ROBERT, resolved. PLAN: - ACEI/BB - Xarelto for stroke prophylaxis. - More confused today but pleasant. Probably sun downing again. Continue to monitor for now. CV stable.
--- NOTE | 2019-01-22 12:52 | PDOC.HOSPP ---
- Subjective Encounter Date: 01/22/19 Encounter Time: 08:20 Subjective: Pt seen for followup re: influenza infection. Feels weak, no other complaints. - Objective Vital Signs & Weight: Vital Signs (12 hours) Temp Pulse Resp BP Pulse Ox 01/22/19 12:17 65 16 93 L 01/22/19 08:00 98.4 F 82 16 121/75 96 01/22/19 06:40 94 L 01/22/19 06:39 78 16 94 L Weight Weight 147 lb 4.865 oz I&O: 01/21/19 01/22/19 01/23/19 06:59 06:59 06:59 Intake Total 805 1175 Balance 805 1175 Result Diagrams: 01/19/19 08:03 01/19/19 08:03 Additional Labs: Labs and MARs reviewed by ak Hospitalist ROS - Review of Systems Cardiovascular: denies: chest pain, palpitations, orthopnea, paroxysmal noc. dyspnea, edema, light headedness Gastrointestinal: denies: nausea, vomiting, abdominal pain, diarrhea, constipation, melena, hematochezia - Medication Medications: Active Medications Generic Name Dose Route Start Last Admin Trade Name Freq PRN Reason Stop Dose Admin Acetaminophen 650 mg 01/15/19 06:02 01/21/19 15:05 Tylenol PO 650 mg Q4H PRN Administration Headache/Fever/Mild Pain (1-3) Albuterol/Ipratropium 3 ml 01/16/19 13:00 01/22/19 12:17 Duoneb NEB 3 ml [id number] ALEX Administration Atorvastatin Calcium 20 mg 01/15/19 21:00 01/21/19 19:47 Lipitor PO 20 mg HS ALEX Administration Carvedilol 12.5 mg 01/20/19 17:00 01/22/19 08:22 Coreg PO 12.5 mg BID-WM ALEX Administration Famotidine 20 mg 01/16/19 09:00 01/22/19 08:23 Pepcid PO 20 mg Q24HR ALEX Administration Furosemide 20 mg 01/19/19 09:00 01/22/19 08:23 Lasix PO 20 mg DAILY ALEX Administration Guaifenesin/Dextromethorphan 15 ml 01/15/19 06:02 01/16/19 10:14 Robitussin Dm PO 15 ml Q4H PRN Administration Cough Haloperidol Lactate 1 mg 01/15/19 16:35 01/17/19 01:38 Haldol SLOW IVP 1 mg HS PRN Administration Agitation Levothyroxine Sodium 25 mcg 01/16/19 06:00 01/22/19 05:23 Synthroid PO 25 mcg 0600 ALEX Administration Lisinopril 5 mg 01/21/19 09:00 01/22/19 08:23 Zestril PO 5 mg DAILY ALEX Administration Potassium Chloride 10 meq 01/20/19 08:00 01/22/19 08:23 Klor-Con 10 PO 10 meq QAM-WM ALEX Administration Rivaroxaban 15 mg 01/15/19 09:00 01/22/19 08:23 Xarelto PO 15 mg DAILY ALEX Administration Sodium Chloride 10 ml 01/16/19 21:00 01/22/19 08:23 Flush - Normal Saline IVF Not Given Q12HR ALEX - Exam General Appearance: NAD Eye: anicteric sclera ENT: normocephalic atraumatic, moist mucosa Neck: supple, no JVD Heart: RRR, no rubs Respiratory: CTAB Gastrointestinal: soft, non-tender Extremities: no clubbing Psychiatric: normal affect, normal behavior Hosp A/P (1) Influenza Code(s): J11.1 - FLU DUE TO UNIDENTIFIED INFLUENZA VIRUS W OTH RESP MANIFEST Status: Acute (2) Acute exacerbation of CHF (congestive heart failure) Code(s): I50.9 - HEART FAILURE, UNSPECIFIED Status: Acute Qualifiers: Heart failure type: systolic Qualified Code(s): I50.23 - Acute on chronic systolic (congestive) heart failure (3) S/P CABG (coronary artery bypass graft) Code(s): Z95.1 - PRESENCE OF AORTOCORONARY BYPASS GRAFT Status: Chronic (4) Acute worsening of stage 3 chronic kidney disease Code(s): N18.3 - CHRONIC KIDNEY DISEASE, STAGE 3 (MODERATE) Status: Resolved - Plan PT/OT, out of bed/ambulate Mobilize pt. Continue furosemide. replace potassium.
[2019-01-22] MEDS: Acetaminophen 325 MG TAB PO PRN (13:38)
[2019-01-22] MEDS: Atorvastatin Calcium 20 MG TAB PO SCH (20:03)
[2019-01-23] MEDS: Levothyroxine Sodium 25 MCG TAB PO SCH (06:10)
[2019-01-23 06:36] LABS: Anion Gap 13 mmol/L (10-20); BUN (Urea Nitrogen) 17 mg/dL (9.8-20.1); Calc. Creatinine Clearance 48 mL/min (70-130); Calcium 8.1 mg/dL (7.8-10.44); Carbon Dioxide 25 mmol/L (23-31); Chloride 105 mmol/L (98-107); Estimated GFR-MDRD 61; Glucose 64 mg/dL (83-110); Sodium 139 mmol/L (136-145)
[2019-01-23] MEDS: Potassium Chloride 10 MEQ TAB PO SCH (08:03)
[2019-01-23] MEDS: Furosemide 20 MG TAB PO SCH (08:03)
[2019-01-23] MEDS: Carvedilol 6.25 MG TAB PO SCH ×2 (08:03→16:59)
[2019-01-23] MEDS: Famotidine 20 MG TAB PO SCH (08:04)
[2019-01-23] MEDS: Lisinopril 5 MG TAB PO SCH (08:04)
[2019-01-23] MEDS: Rivaroxaban 15 MG TAB PO SCH (08:06)
--- NOTE | 2019-01-23 18:49 | PDOC.HOSPP ---
- Subjective Encounter Date: 01/23/19 Encounter Time: 09:00 Subjective: Pt seen for followup re: influenza. Sleepy but arousable, not speaking, unable to complete ROS. - Objective Vital Signs & Weight: Vital Signs (12 hours) Temp Pulse Resp BP Pulse Ox 01/23/19 16:46 98.3 F 77 18 121/77 98 01/23/19 12:54 72 97 01/23/19 08:00 100 01/23/19 07:42 98.2 F 80 14 133/84 100 01/23/19 07:04 83 16 96 Weight Weight 147 lb 4.865 oz I&O: 01/22/19 01/23/19 01/24/19 06:59 06:59 06:59 Intake Total 1175 Balance 1175 Result Diagrams: 01/19/19 08:03 01/23/19 05:20 Additional Labs: Accuchecks 01/23/19 16:47 POC Glucose 98 Labs and MARs reviewed by me Hospitalist ROS - Review of Systems ROS unobtainable: due to mental status - Medication Medications: Active Medications Generic Name Dose Route Start Last Admin Trade Name Freq PRN Reason Stop Dose Admin Acetaminophen 650 mg 01/15/19 06:02 01/22/19 13:38 Tylenol PO 650 mg Q4H PRN Administration Headache/Fever/Mild Pain (1-3) Albuterol/Ipratropium 3 ml 01/16/19 13:00 01/23/19 12:54 Duoneb NEB 3 ml [id number] ALEX Administration Atorvastatin Calcium 20 mg 01/15/19 21:00 01/22/19 20:03 Lipitor PO 20 mg HS ALEX Administration Carvedilol 12.5 mg 01/20/19 17:00 01/23/19 16:59 Coreg PO Not Given BID-WM ALEX Famotidine 20 mg 01/16/19 09:00 01/23/19 08:04 Pepcid PO 20 mg Q24HR ALEX Administration Furosemide 20 mg 01/19/19 09:00 01/23/19 08:03 Lasix PO 20 mg DAILY ALEX Administration Guaifenesin/Dextromethorphan 15 ml 01/15/19 06:02 01/16/19 10:14 Robitussin Dm PO 15 ml Q4H PRN Administration Cough Haloperidol Lactate 1 mg 01/15/19 16:35 01/17/19 01:38 Haldol SLOW IVP 1 mg HS PRN Administration Agitation Levothyroxine Sodium 25 mcg 01/16/19 06:00 01/23/19 06:10 Synthroid PO 25 mcg 0600 ALEX Administration Lisinopril 5 mg 01/21/19 09:00 01/23/19 08:04 Zestril PO 5 mg DAILY ALEX Administration Potassium Chloride 10 meq 01/20/19 08:00 01/23/19 08:03 Klor-Con 10 PO 10 meq QAM-WM ALEX Administration Rivaroxaban 15 mg 01/15/19 09:00 01/23/19 08:06 Xarelto PO 15 mg DAILY ALEX Administration Sodium Chloride 10 ml 01/16/19 21:00 01/23/19 08:04 Flush - Normal Saline IVF Not Given Q12HR ALEX - Exam General Appearance: NAD Eye: anicteric sclera ENT: normocephalic atraumatic Neck: supple Heart: RRR Respiratory: CTAB Gastrointestinal: soft, normal bowel sounds Skin: no rashes Psychiatric - other findings: Unable to assess Hosp A/P (1) Influenza Code(s): J11.1 - FLU DUE TO UNIDENTIFIED INFLUENZA VIRUS W OTH RESP MANIFEST Status: Acute (2) Acute exacerbation of CHF (congestive heart failure) Code(s): I50.9 - HEART FAILURE, UNSPECIFIED Status: Acute Qualifiers: Heart failure type: systolic Qualified Code(s): I50.23 - Acute on chronic systolic (congestive) heart failure (3) S/P CABG (coronary artery bypass graft) Code(s): Z95.1 - PRESENCE OF AORTOCORONARY BYPASS GRAFT Status: Chronic (4) Acute worsening of stage 3 chronic kidney disease Code(s): N18.3 - CHRONIC KIDNEY DISEASE, STAGE 3 (MODERATE) Status: Resolved - Plan Mobilize pt. Continue furosemide. Disposition: SNU for hospice care.
[2019-01-23] MEDS: Atorvastatin Calcium 20 MG TAB PO SCH (20:04)
[2019-01-24] MEDS: Levothyroxine Sodium 25 MCG TAB PO SCH (05:19)
[2019-01-24] MEDS: Potassium Chloride 10 MEQ TAB PO SCH (08:15)
[2019-01-24] MEDS: Carvedilol 6.25 MG TAB PO SCH ×2 (08:16→17:32)
[2019-01-24] MEDS: Furosemide 20 MG TAB PO SCH (08:16)
[2019-01-24] MEDS: Lisinopril 5 MG TAB PO SCH (08:16)
[2019-01-24] MEDS: Rivaroxaban 15 MG TAB PO SCH (08:16)
[2019-01-24] MEDS: Famotidine 20 MG TAB PO SCH (08:21)
--- NOTE | 2019-01-24 19:42 | PDOC.HOSPP ---
- Subjective Encounter Date: 01/24/19 Encounter Time: 09:20 Subjective: Pt seen for followup re: influenza. Denies any complaints. - Objective Vital Signs & Weight: Vital Signs (12 hours) Temp Pulse Resp BP BP BP Pulse Ox 01/24/19 17:33 76 117/72 01/24/19 17:32 117/72 01/24/19 08:16 76 136/78 01/24/19 08:00 93 L 01/24/19 07:41 99.8 F H 76 18 136/78 93 L Weight Weight 147 lb 4.865 oz I&O: 01/23/19 01/24/19 01/25/19 06:59 06:59 06:59 Intake Total 360 1040 Balance 360 1040 Result Diagrams: 01/19/19 08:03 01/23/19 05:20 Additional Labs: Labs and MARs reviewed by al Hospitalist ROS - Review of Systems Genitourinary: denies: dysuria, frequency, incontinence, hematuria, retention Skin: denies: rash, lesions, gloria, bruising - Medication Medications: Active Medications Generic Name Dose Route Start Last Admin Trade Name Freq PRN Reason Stop Dose Admin Acetaminophen 650 mg 01/15/19 06:02 01/22/19 13:38 Tylenol PO 650 mg Q4H PRN Administration Headache/Fever/Mild Pain (1-3) Albuterol/Ipratropium 3 ml 01/16/19 13:00 01/24/19 18:55 Duoneb NEB Not Given [id number] ALEX Atorvastatin Calcium 20 mg 01/15/19 21:00 01/23/19 20:04 Lipitor PO 20 mg HS ALEX Administration Carvedilol 12.5 mg 01/20/19 17:00 01/24/19 17:32 Coreg PO 12.5 mg BID-WM ALEX Administration Famotidine 20 mg 01/16/19 09:00 01/24/19 08:21 Pepcid PO 20 mg Q24HR ALEX Administration Furosemide 20 mg 01/19/19 09:00 01/24/19 08:16 Lasix PO 20 mg DAILY ALEX Administration Guaifenesin/Dextromethorphan 15 ml 01/15/19 06:02 01/16/19 10:14 Robitussin Dm PO 15 ml Q4H PRN Administration Cough Haloperidol Lactate 1 mg 01/15/19 16:35 01/17/19 01:38 Haldol SLOW IVP 1 mg HS PRN Administration Agitation Levothyroxine Sodium 25 mcg 01/16/19 06:00 01/24/19 05:19 Synthroid PO 25 mcg 0600 ALEX Administration Lisinopril 5 mg 01/21/19 09:00 01/24/19 08:16 Zestril PO 5 mg DAILY ALEX Administration Potassium Chloride 10 meq 01/20/19 08:00 01/24/19 08:15 Klor-Con 10 PO 10 meq QAM-WM ALEX Administration Rivaroxaban 15 mg 01/15/19 09:00 01/24/19 08:16 Xarelto PO 15 mg DAILY ALEX Administration Sodium Chloride 10 ml 01/16/19 21:00 01/24/19 08:16 Flush - Normal Saline IVF Not Given Q12HR ALEX - Exam General Appearance: NAD, awake alert Eye: anicteric sclera ENT: normocephalic atraumatic, moist mucosa Neck: supple, symmetric Heart: RRR Respiratory: CTAB Gastrointestinal: soft Extremities: no clubbing Psychiatric: normal affect, normal behavior Hosp A/P (1) Influenza Code(s): J11.1 - FLU DUE TO UNIDENTIFIED INFLUENZA VIRUS W OTH RESP MANIFEST Status: Acute (2) Acute exacerbation of CHF (congestive heart failure) Code(s): I50.9 - HEART FAILURE, UNSPECIFIED Status: Acute Qualifiers: Heart failure type: systolic Qualified Code(s): I50.23 - Acute on chronic systolic (congestive) heart failure (3) S/P CABG (coronary artery bypass graft) Code(s): Z95.1 - PRESENCE OF AORTOCORONARY BYPASS GRAFT Status: Chronic (4) Acute worsening of stage 3 chronic kidney disease Code(s): N18.3 - CHRONIC KIDNEY DISEASE, STAGE 3 (MODERATE) Status: Resolved - Plan out of bed/ambulate Mobilize pt. Continue furosemide. Disposition: Awaiting SNU placement.
[2019-01-24] MEDS: Atorvastatin Calcium 20 MG TAB PO SCH (19:51)
[2019-01-25] MEDS ORDERED: Levothyroxine Sodium 25 MCG TAB ONE (04:45)
[2019-01-25] MEDS: Levothyroxine Sodium 25 MCG TAB PO SCH (06:00)
[2019-01-25] MEDS: Lisinopril 5 MG TAB PO SCH (08:51)
[2019-01-25] MEDS: Potassium Chloride 10 MEQ TAB PO SCH (08:51)
[2019-01-25] MEDS: Carvedilol 6.25 MG TAB PO SCH (08:51)
[2019-01-25] MEDS: Rivaroxaban 15 MG TAB PO SCH (08:51)
[2019-01-25] MEDS: Famotidine 20 MG TAB PO SCH (08:51)
[2019-01-25] MEDS: Furosemide 20 MG TAB PO SCH (08:51)
[2019-01-25] MEDS ORDERED: Magnesium Citrate 300 ML BOT PO SCH (13:30)
[2019-01-25 16:37] VITALS: BP 109/71; TEMP 97.9
--- NOTE | 2019-01-25 18:32 | DIS ---
DATE OF ADMISSION: 01/15/2019 DATE OF DISCHARGE: 01/25/2019 PRIMARY CARE PROVIDER: Tracy Barroso MD. DISCHARGE DIAGNOSES: 1. Acute metabolic encephalopathy. 2. Acute hypoxic respiratory failure. 3. Influenza A infection. 4. Influenza B infection. 5. Nonsustained ventricular tachycardia. 6. Acute on chronic systolic congestive heart failure, NYHA class III. 7. Hypokalemia. 8. Vdi-[id number] type 2 myocardial infarction, present on admission. CONSULTATIONS DURING THIS HOSPITALIZATION: Electrophysiology, Dr. Miranda and Cardiology, Dr. Goldstein. HOSPITAL COURSE: Ms. Manley is a pleasant 89-year-old lady, who was admitted to [facility] for influenza infection. Please refer to Dr. Jasso's history and physical note dated 01/15/2019, for further details. She was seen by Cardiology and Electrophysiology Services for chronic atrial fibrillation. She was treated with Tamiflu. 2D echocardiogram showed left ventricular ejection fraction of 15% to 20%. She was also seen by Palliative Care Service. She received intravenous diuretics. She improved clinically. She is being discharged to [facility] per family's decision. CODE STATUS DURING THIS HOSPITALIZATION: DNAR. DISCHARGE MEDICATIONS: 1. Ocuvite Adult 50+ soft gel one capsule daily. 2. Vitamin D3 of 5000 units daily. 3. Folic acid 1 mg daily. 4. Levothyroxine 25 mcg daily. 5. Rivaroxaban 15 mg daily. 6. Lipitor 20 mg at bedtime. 7. Coreg 12.5 mg 2 times a day. 8. Lasix 20 mg daily. 9. Lisinopril 5 mg daily. 10. Cetirizine 10 mg daily as needed. 11. DuoNeb as needed. Many thanks for allowing me to participate in your patient's care. Please feel free to contact me with any questions or concerns. POST-ACUTE DISCHARGE FOLLOWUP: With primary care provider in 3 to 5 days. DIET: Heart Healthy. ACTIVITY: As tolerated. DISCHARGE DESTINATION: [facility]. TIME SPENT: Total amount of time spent coordinating this discharge: 33 minutes. Job ID: [id number] MTDD
== END 2019-01-25 16:46 | DRG 280 ==
LOC: ERS 22:50 → 2NO 01-15 04:21 → T4-A 01-18 15:42
PROVIDERS: ADMIT Internal Medicine; ATTEND Internal Medicine
DX: I47.2 Ventricular tachycardia (principal); G93.41 Metabolic encephalopathy; I21.A1 Myocardial infarction type 2; J96.01 Acute respiratory failure with hypoxia; I50.23 Acute on chronic systolic (congestive) heart failure; I13.0 Hypertensive heart and chronic kidney disease with heart failure and stage 1 through stage 4 chronic kidney disease, or unspecified chronic kidney disease; N17.9 Acute kidney failure, unspecified; I48.20 Chronic atrial fibrillation, unspecified; Z66 Do not resuscitate; Z51.5 Encounter for palliative care; E86.0 Dehydration; J10.1 Influenza due to other identified influenza virus with other respiratory manifestations; M06.9 Rheumatoid arthritis, unspecified; N18.3 Chronic kidney disease, stage 3 (moderate); I25.10 Atherosclerotic heart disease of native coronary artery without angina pectoris; E87.6 Hypokalemia; E03.9 Hypothyroidism, unspecified; Z90.710 Acquired absence of both cervix and uterus; Z79.01 Long term (current) use of anticoagulants; Z98.51 Tubal ligation status; Z95.5 Presence of coronary angioplasty implant and graft; Z95.810 Presence of automatic (implantable) cardiac defibrillator; Z88.6 Allergy status to analgesic agent; Z88.0 Allergy status to penicillin; Z88.2 Allergy status to sulfonamides; Z88.8 Allergy status to other drugs, medicaments and biological substances; Z95.1 Presence of aortocoronary bypass graft; Z95.2 Presence of prosthetic heart valve
CPT/HCPCS: 36415; 36416; 71045; 80048; 83735; 83880; 84484; 85007; 85025; 85027; 93005; 93010; 93306; 94640; 94667; 94668; 96374; J1630; J1940; J2930; J3490; J7620